=== PATIENT | female | born 1990 | race Caucasian/White ===

== ENCOUNTER 2023-10-26 19:55 | Observation (INO) | payer BC, SELFPAY ==
[2023-10-26] VITALS (10 sets, daily range): BP systolic 125–156; BP diastolic 57–97; PULSE 108–132; BMI 39.6; BMI 37.5
[2023-10-26 15:20] LABS: Urine Albumin Negative (Neg - Trace); Urine Bilirubin Negative (Negative); Urine Character Clear (Clear); Urine Color Yellow; Urine Glucose Negative (Negative); Urine Ketone Negative (Negative); Urine Leukocyte Negative (Negative); Urine Nitrite Negative (Negative); Urine Occult Blood Negative (Negative); Urine Specific Gravity 1.015 (<1.030); Urine Urobilinogen Negative (Neg - 1+)
[2023-10-26 15:22] LABS: % Basophils 0.5 % (0-2); % Eosinophils 1.8 % (0-6); % Immature Granulocytes 2.6 % (0-0.5); % Lymphocytes 13.9 % (20.5-51.1); % Neutrophils 74.2 % (42.2-75.2); Absolute Basophils 0.1 10^3/uL (0-0.2); Absolute Eosinophils 0.3 10^3/uL (0-0.7); Absolute Immature Granulocytes 0.4 10^3/uL (0-0.05); Absolute Neutrophils 10.6 10^3/uL (1.4-6.5); Hematocrit 33.9 % (37.0-47.0); Hemoglobin 11.5 g/dL (12.0-16.0); Mean Corp Hgb Conc. 33.9 g/dL (33.0-37.0); Mean Corpuscular Hgb 29.6 pg (27.0-31.0); Mean Corpuscular Volume 87.1 fL (81.0-99.0); Mean Platelet Volume 10.8 fL (7.4-10.4); Nucleated Red Blood Cells % 0 %; Platelet Count 204 10^3/uL (130-400); Red Blood Cell Count 3.89 10^6/uL (4.20-5.40); Red Cell Dist. Width 14.2 % (11.5-14.5); White Blood Cell Count 14.3 10^3/uL (4.8-10.8)
--- NOTE | 2023-10-26 15:22 | ED.GENMED ---
History of Present Illness
General
Chief Complaint: Breathing Problem
Source: patient
Exam Limitations: none
Time Seen by Provider: 10/26/23 14:00
Travel History
Have you had any contact with someone who has COVID-19?: No
Do you have any symptoms of coronavirus? Fever > 100 degrees, chills, cough, shortness of breath, sore throat, loss of taste or smell, muscle aches, or headache?: No
History of Present Illness
History of Present Illness:
This is a 33-year-old female who is 34 weeks and presents for increasing shortness of breath mostly with exertion. Patient states with exertion her heart rate will go up to close to 150. She states even with minimal getting up bed or
chair her heart rate goes up when she feels short of breath. She has had some compensation. She is lower extremity swelling. She also has had pelvic and vaginal pressure and swelling as well she also had bruising in her pelvic area. Patient has
been in contact with her OB. Patient was not sure if this was pathologic or expected at 34 weeks. She has had normal movement. She did start with Franky Rodriguez contractions this week. Denies chest pain. No pleuritic pain. No calf. No
hemoptysis.
Past History
Past History
ED Past Medical History: Other (Kidney stones)
ED Past Surgical History: Other
Social History
Tobacco: Non-smoker
Employment: Employed
Phy Exam
Physical Exam
Physical Exam:
CONSTITUTIONAL Patient alert and oriented to person, place and time. Well-appearing. Vital signs reviewed.
HEAD atraumatic, normocephalic.
EYES eyelids normal to inspection, Pupils equally round and reactive to light, Extraocular muscles intact, Conjunctiva normal, Sclera normal.
NECK normal range of motion, Trachea midline, no jugular venous distention.
RESPIRATORY CHEST No respiratory distress noted, Chest expansion equal, Bilateral breath sounds clear.
CARDIOVASCULAR regular rate and rhythm, Heart sounds normal.
ABDOMEN abdomen nontender, Bowel sounds normal. No distention. Gravid uterus
BACK normal inspection, no obvious deformities
UPPER EXTREMITY range of motion normal, Motor strength normal, no cyanosis, no edema.
LOWER EXTREMITY range of motion normal, Motor strength normal, no cyanosis, bilateral edema.
NEURO Speech normal, No focal motor deficits, Rod coma scale 15, Memory normal, Cranial Nerves intact to screening exam.
SKIN skin warm, dry, and normal in color.
PSYCHIATRIC patient oriented to person place and time, Normal affect.
Course
Orders/Labs/Results
Orders:
Orders
10/26/23
ECG [Electrocardiogram (*1)] Urgent
Reason for Study: Shortness of Breath
10/26/23 14:13
US Periph Venous LOWER Ext Crescencio Urgent
Comment:
Reason For Exam: SOB, , edema
10/26/23 14:14
Electrocardiogram (*1) Urgent
Reason for Study: Shortness of Breath
EKG- Treatment ONCE
10/26/23 14:15
Heart Tones ONCE
Orthostatic VS- Treatment ONCE
10/26/23 15:05
Complete Blood Count/With Diff Urgent
Comprehensive Metabolic Panel Urgent
Urinalysis Reflex To Culture Urgent
Date Specimen was Collected: 10/26/23
Time Specimen was Collected: 14:59
10/26/23 17:40
CT Chest Pe Study Urgent
Comment:
Reason For Exam: sob, tachycardia, 3rd trimester
10/26/23 18:46
EKG- Treatment ONCE
Abnormal Lab Results
10/26/23
15:05
WBC 14.3 H 10^3/uL
(4.8-10.8)
RBC 3.89 L 10^6/uL
(4.20-5.40)
Hgb 11.5 L g/dL
(12.0-16.0)
Hct 33.9 L %
(37.0-47.0)
MPV 10.8 H fL
(7.4-10.4)
Abs Immat Gran (auto) 0.4 H 10^3/uL
(0-0.05)
Absolute Neuts (auto) 10.6 H 10^3/uL
(1.4-6.5)
Absolute Monos (auto) 1.0 H 10^3/uL
(0.1-0.6)
Immature Gran % 2.6 H %
(0-0.5)
Lymphocytes % 13.9 L %
(20.5-51.1)
Sodium 132 L mmol/L
(135-145)
Creatinine 0.5 L mg/dL
(0.6-1.0)
Alkaline Phosphatase 137 H U/L
(38-126)
10/26/23 15:05
10/26/23 15:05
Vital Signs
Initial and Last Documented VS:
Initial Vital Signs
Temp Pulse Resp BP Pulse Ox
98.1 F 116 20 132/97 98
10/26/23 14:04 10/26/23 14:04 10/26/23 14:04 10/26/23 14:04 10/26/23 14:04
Last Documented Vital Signs
Temp Pulse Resp BP Pulse Ox
98.1 F 106 19 129/74 100
10/26/23 14:04 10/26/23 18:15 10/26/23 18:15 10/26/23 16:13 10/26/23 16:15
MDM/Problems Addressed
MDM/Problems Addressed:
Dyspnea, tachycardia
*Radiology
Radiology exam reviewed: preliminary read by ED provider (No obvious central PE)
*Pulse Oximetry
Patient hypoxic: no
*EKG
Interpreted by ED Provider?: Yes
Interpretation: abnormal
Rate: tachycardiac
Rhythm: sinus
[place]: normal axis
QRS Pattern: normal QRS
Ischemia: no ischemia
*Grappler Interpretation
Rate: tachycardiac
Interpretation: abnormal
Rhythm: sinus
*Critical Care Note
Total Time (30-74mins, 75-104mins- exclusive of procedures): Not Applicable
Data Reviewed
Source: patient
Patient Management
Discussion with other providers: Slip Injector And Applicator (Discussed with Dr. Galeas)
Escalation/DeEscalation of care consider admission/obs:
Appears well. Heart rate 98 on reexam. She does get tachycardic with minimal movement but question whether this is related to third trimester . No PE. No pericardial effusion. No cardiomegaly. No uncontrolled hypertension. I do think
she is safe for discharge. Will write her out of work tomorrow and has OB follow-up on Thursday
ED Attending Note
-
Portions of this chart may have been created with voice recognition software.� Occasional wrong word or��sound alike� substitutions may have occurred due to the inherent limitations of voice recognition software.
Discharge Plan
Departure
Patient Disposition: Home (Routine Discharge)
Date of Disposition: 10/26/23
Time of Disposition: 19:36
Patient with high blood pressure during this ER visit?: No
Discharge Problem:
Dyspnea
Instructions: Shortness of breath (dyspnea)
Prescriptions:
No Action
doxylamine-pyridoxine (vit B6) [Diclegis] 10-10 mg tablet,delayed release (DR/EC)
2 tab PO HS Qty: 30 0RF
Referrals:
UNKNOWN - PT DOES,NOT KNOW [Unknown Provider] -
Activity Restrictions/Additional Instructions:
Please see your OB on Thursday as planned. Please rest and elevate your feet when you can. Return immediately for vaginal bleeding, chest pain, shortness of breath, fevers or any other concerns.
Interventions
Interventions:
*Risk Screen - Suicide Last Done: 10/26/23 14:20
*General Assessment Last Done: 10/26/23 14:45
*Neglect/Abuse Screening Last Done: 10/26/23 14:20
ED- Fall Risk Assessment Last Done: 10/26/23 14:45
*ED COVID-19 Vaccine History Last Done: 10/26/23 14:45
ED- Cardiac Assessment Last Done: 10/26/23 14:45
ED- Pulmonary Assessment Last Done: 10/26/23 14:45
[2023-10-26 15:33] LABS: ALT (SGPT) 14 U/L (0-35); AST (SGOT) 20 U/L (14-36); Albumin 3.5 g/dl (3.5-5.0); Alkaline Phosphatase 137 U/L (38-126); Blood Urea Nitrogen 7 mg/dl (7-17); Calcium 9.3 mg/dl (8.4-10.2); Carbon Dioxide 22 mmol/L (22-30); Chloride 107 mmol/L (98-107); Estimated Creatinine Clearance > 125 ml/min; Glucose 82 mg/dl (70-99); Potassium 3.8 mmol/L (3.5-5.1); Sodium 132 mmol/L (135-145); Total Bilirubin 0.5 mg/dl (0.2-1.3); Total Protein 6.6 g/dl (6.3-8.2); eGFR > 60.00
== END 2023-10-26 21:20 | disposition home or self-care (01) ==
LOC: LDRP 19:55
PROVIDERS: ADMITTING PHYSICIAN Obstetrics & Gynecology; EMERGENCY PHYSICIAN Emergency Medicine; FAMILY PHYSICIAN Family Medicine
DX: R06.02 Shortness of breath (principal); R00.0 Tachycardia, unspecified; O99.891 Other specified diseases and conditions complicating pregnancy; Z3A.33 33 weeks gestation of pregnancy; M79.89 Other specified soft tissue disorders; Z87.442 Personal history of urinary calculi; R06.00 Dyspnea, unspecified
CPT/HCPCS: 71275; 80053; 81003; 85025; 93005; 93970; 99285; G0378; Q9967

== ENCOUNTER → 2023-10-28 10:44 | Outpatient (REF) | payer BC, SELFPAY ==
[2023-10-28 12:30] LABS: Free T4 0.58 ng/dl (0.78-2.19)
[2023-10-28 12:44] LABS: TSH 1.59 uIU/ml (0.47-4.68)
== END ==
LOC: REG 10:44
PROVIDERS: ATTENDING PHYSICIAN Obstetrics & Gynecology; FAMILY PHYSICIAN Family Medicine
DX: Z34.90 Encounter for supervision of normal pregnancy, unspecified, unspecified trimester (principal); R00.2 Palpitations
CPT/HCPCS: 36415; 84439; 84443

== ENCOUNTER → 2023-10-29 09:33 | Outpatient (REF) | payer BC, SELFPAY | LOC: PNTC 09:33 | PROVIDERS: ATTENDING PHYSICIAN Obstetrics & Gynecology | DX: O99.210 Obesity complicating pregnancy, unspecified trimester (principal) | CPT/HCPCS: 59025; 76815 ==

== ENCOUNTER 2023-11-04 17:58 | Observation (INO) | payer BC, SELFPAY ==
[2023-11-04 18:02] VITALS: BP 100/60; BMI 39.2
[2023-11-04 18:23] LABS: Hematocrit 32.9 % (37.0-47.0); Hemoglobin 11.4 g/dL (12.0-16.0); Mean Corp Hgb Conc. 34.7 g/dL (33.0-37.0); Mean Corpuscular Hgb 29.5 pg (27.0-31.0); Mean Platelet Volume 10.7 fL (7.4-10.4); Platelet Count 204 10^3/uL (130-400); Red Blood Cell Count 3.87 10^6/uL (4.20-5.40); Red Cell Dist. Width 14.5 % (11.5-14.5); Urine Albumin Negative (Neg - Trace); Urine Bilirubin Negative (Negative); Urine Character Clear (Clear); Urine Color Yellow; Urine Glucose Negative (Negative); Urine Ketone Negative (Negative); Urine Leukocyte Negative (Negative); Urine Nitrite Negative (Negative); Urine Occult Blood Negative (Negative); Urine Urobilinogen Negative (Neg - 1+); White Blood Cell Count 14.4 10^3/uL (4.8-10.8)
[2023-11-04] MEDS: TYLENOL 1000 MG PO (18:35)
[2023-11-04 18:37] LABS: ALT (SGPT) 15 U/L (0-35); AST (SGOT) 19 U/L (14-36); Albumin 3.5 g/dl (3.5-5.0); Alkaline Phosphatase 137 U/L (38-126); Blood Urea Nitrogen 8 mg/dl (7-17); Calcium 9.4 mg/dl (8.4-10.2); Carbon Dioxide 18 mmol/L (22-30); Chloride 110 mmol/L (98-107); Estimated Creatinine Clearance > 125 ml/min; Glucose 106 mg/dl (70-99); Potassium 3.9 mmol/L (3.5-5.1); Sodium 133 mmol/L (135-145); Total Bilirubin 0.5 mg/dl (0.2-1.3); Total Protein 6.7 g/dl (6.3-8.2); eGFR > 60.00
[2023-11-04 18:40] LABS: Urine Protein 16 mg/dl
[2023-11-04 19:07] LABS: Protein/creatinine Ratio 0.4
== END 2023-11-04 19:44 | disposition home or self-care (01) ==
LOC: LDRP 17:58
PROVIDERS: ADMITTING PHYSICIAN Obstetrics & Gynecology; FAMILY PHYSICIAN Obstetrics & Gynecology
DX: O13.3 Gestational [pregnancy-induced] hypertension without significant proteinuria, third trimester (principal); R51.9 Headache, unspecified; R60.0 Localized edema; R10.11 Right upper quadrant pain; O99.891 Other specified diseases and conditions complicating pregnancy; Z3A.35 35 weeks gestation of pregnancy
CPT/HCPCS: 36415; 80053; 81003; 82570; 83880; 84156; 84550; 85027; G0378

== ENCOUNTER → 2023-11-05 09:29 | Outpatient (REF) | payer BC, SELFPAY | LOC: PNTC 09:29 | PROVIDERS: ATTENDING PHYSICIAN Obstetrics & Gynecology | DX: O99.210 Obesity complicating pregnancy, unspecified trimester (principal) | CPT/HCPCS: 59025; 76815 ==

== ENCOUNTER 2023-11-06 13:51 | Observation (INO) | payer BC, SELFPAY ==
[2023-11-06 14:02] VITALS: BP 146/89; BMI 39.9
== END 2023-11-06 14:51 | disposition home or self-care (01) ==
LOC: LDRP 13:51
PROVIDERS: ADMITTING PHYSICIAN Obstetrics & Gynecology; FAMILY PHYSICIAN Family Medicine
DX: O47.03 False labor before 37 completed weeks of gestation, third trimester (principal); Z3A.35 35 weeks gestation of pregnancy; M54.50 Low back pain, unspecified; R10.9 Unspecified abdominal pain; R06.02 Shortness of breath
CPT/HCPCS: 87070; 93306; G0378

== ENCOUNTER → 2023-11-09 14:38 | Outpatient (REF) | payer BC, SELFPAY ==
[2023-11-09 16:02] LABS: Urine Protein 14 mg/dl (0-12)
[2023-11-09 16:17] LABS: 24 Hour Urine Creatinine 1.771 gm/day (0.8-1.8); 24 Hour Urine Total Volume 2900 ml
== END ==
LOC: REG 14:38
PROVIDERS: ATTENDING PHYSICIAN Obstetrics & Gynecology; FAMILY PHYSICIAN Family Medicine
DX: R82.90 Unspecified abnormal findings in urine (principal)
CPT/HCPCS: 81050; 82570; 84156

== ENCOUNTER 2023-11-11 10:45 | Observation (INO) | payer BC, SELFPAY ==
[2023-11-11 11:04] VITALS: BP 150/94; BMI 40.8
[2023-11-11 12:07] LABS: Hematocrit 33.3 % (37.0-47.0); Hemoglobin 11.3 g/dL (12.0-16.0); Mean Corp Hgb Conc. 33.9 g/dL (33.0-37.0); Mean Corpuscular Hgb 29.6 pg (27.0-31.0); Mean Corpuscular Volume 87.2 fL (81.0-99.0); Mean Platelet Volume 11.1 fL (7.4-10.4); Platelet Count 197 10^3/uL (130-400); Red Blood Cell Count 3.82 10^6/uL (4.20-5.40); Red Cell Dist. Width 14.6 % (11.5-14.5); White Blood Cell Count 13.8 10^3/uL (4.8-10.8)
[2023-11-11] MEDS: COMPAZINE 10 MG IM (12:08)
[2023-11-11] MEDS: BENADRYL 50 MG PO (12:08)
[2023-11-11 12:23] LABS: ALT (SGPT) 14 U/L (0-35); AST (SGOT) 20 U/L (14-36); Albumin 3.3 g/dl (3.5-5.0); Alkaline Phosphatase 137 U/L (38-126); Blood Urea Nitrogen 9 mg/dl (7-17); Calcium 9.5 mg/dl (8.4-10.2); Carbon Dioxide 18 mmol/L (22-30); Chloride 108 mmol/L (98-107); Estimated Creatinine Clearance > 125 ml/min; Glucose 102 mg/dl (70-99); Potassium 4.2 mmol/L (3.5-5.1); Sodium 132 mmol/L (135-145); Total Bilirubin 0.5 mg/dl (0.2-1.3); Total Protein 6.4 g/dl (6.3-8.2); eGFR > 60.00
[2023-11-11] MEDS: CELESTONE SOLUSPAN 2 MG IM (12:23)
== END 2023-11-11 15:15 | disposition home or self-care (01) ==
LOC: LDRP 10:45
PROVIDERS: ADMITTING PHYSICIAN Obstetrics & Gynecology
DX: O14.03 Mild to moderate pre-eclampsia, third trimester (principal); Z3A.36 36 weeks gestation of pregnancy; O99.343 Other mental disorders complicating pregnancy, third trimester; E87.1 Hypo-osmolality and hyponatremia; F41.9 Anxiety disorder, unspecified; F32.A Depression, unspecified; Z87.442 Personal history of urinary calculi; R51.9 Headache, unspecified; R60.0 Localized edema
CPT/HCPCS: 80053; 85027; G0378

== ENCOUNTER 2023-11-12 11:41 | Observation (INO) | payer BC, SELFPAY ==
[2023-11-12] MEDS: CELESTONE SOLUSPAN 2 MG IM (11:52)
== END 2023-11-12 14:30 | disposition home or self-care (01) ==
LOC: PNTC-IN 11:41
PROVIDERS: ADMITTING PHYSICIAN Obstetrics & Gynecology
DX: O14.03 Mild to moderate pre-eclampsia, third trimester (principal); Z3A.36 36 weeks gestation of pregnancy
CPT/HCPCS: 59025; 76816; G0378

== ENCOUNTER 2023-11-16 19:21 | Inpatient (IN) | payer BC, SELFPAY ==
[2023-11-16 20:56] VITALS: BP 142/82; BMI 40.8
[2023-11-16 21:04] LABS: % Basophils 0.3 % (0-2); % Eosinophils 1.2 % (0-6); % Immature Granulocytes 1.5 % (0-0.5); % Lymphocytes 15.4 % (20.5-51.1); % Monocytes 6.5 % (1.7-9.3); % Neutrophils 75.1 % (42.2-75.2); Absolute Basophils 0.1 10^3/uL (0-0.2); Absolute Eosinophils 0.2 10^3/uL (0-0.7); Absolute Immature Granulocytes 0.2 10^3/uL (0-0.05); Absolute Lymphocytes 2.4 10^3/uL (1.2-3.4); Absolute Neutrophils 11.7 10^3/uL (1.4-6.5); Hematocrit 31.8 % (37.0-47.0); Mean Corp Hgb Conc. 34.6 g/dL (33.0-37.0); Mean Corpuscular Hgb 29.1 pg (27.0-31.0); Mean Corpuscular Volume 84.1 fL (81.0-99.0); Mean Platelet Volume 10.9 fL (7.4-10.4); Nucleated Red Blood Cells % 0 %; Platelet Count 213 10^3/uL (130-400); Red Blood Cell Count 3.78 10^6/uL (4.20-5.40); Red Cell Dist. Width 15.2 % (11.5-14.5); White Blood Cell Count 15.6 10^3/uL (4.8-10.8)
[2023-11-16] MEDS: CYTOTEC 50 MICROGRAM VAG (21:13)
[2023-11-17] MEDS: CYTOTEC 25 MICROGRAM PO ×2 (01:10→05:04)
[2023-11-17] MEDS: MORPHINE SULFATE 2 MG IV ×4 (02:14→15:12)
[2023-11-17] MEDS: ZOFRAN 4 MG IV (07:34)
[2023-11-17] MEDS: CYTOTEC PO (10:27)
[2023-11-17 12:24] LABS: Potassium 4.2 mmol/L (3.5-5.1)
[2023-11-17 12:25] LABS: ALT (SGPT) 15 U/L (0-35); AST (SGOT) 20 U/L (14-36); Albumin 3.5 g/dl (3.5-5.0); Alkaline Phosphatase 155 U/L (38-126); Blood Urea Nitrogen 11 mg/dl (7-17); Calcium 9.1 mg/dl (8.4-10.2); Carbon Dioxide 22 mmol/L (22-30); Chloride 105 mmol/L (98-107); Estimated Creatinine Clearance > 125 ml/min; Glucose 76 mg/dl (70-99); Sodium 131 mmol/L (135-145); Total Bilirubin 0.7 mg/dl (0.2-1.3); Total Protein 6.7 g/dl (6.3-8.2); eGFR > 60.00
[2023-11-17] MEDS: PITOCIN 30 UNITS/NSS 500 ML IV (12:54)
[2023-11-17] MEDS: PHENERGAN 51 MG IV (15:27)
[2023-11-17] MEDS: SUBLIMAZE 100 MCG EPIDURAL (17:00)
[2023-11-17] MEDS: FENTANYL/BUPIVACAINE 100 EPIDURAL (17:00)
[2023-11-18] MEDS: FENTANYL/BUPIVACAINE 100 EPIDURAL ×2 (00:29→07:50)
[2023-11-18] MEDS: LR 1000 IV ×2 (00:30→07:52)
[2023-11-18] MEDS: TYLENOL 650 MG PO ×2 (00:47→18:07)
[2023-11-18] MEDS: BENADRYL 50 MG IV (03:15)
[2023-11-18] MEDS: COMPAZINE 10 MG IV (03:17)
[2023-11-18] MEDS: MOTRIN 600 MG PO ×2 (14:31→20:25)
[2023-11-18] MEDS: PRENATAL PLUS 1 TABLET PO (22:06)
[2023-11-19] MEDS: MOTRIN 600 MG PO ×3 (03:36→17:41)
[2023-11-19] MEDS: TYLENOL 650 MG PO ×4 (03:37→22:32)
[2023-11-19 06:04] LABS: Hematocrit 28.6 % (37.0-47.0); Hemoglobin 9.5 g/dL (12.0-16.0)
[2023-11-19] MEDS: SENOKOT-S 1 TABLET PO (08:41)
[2023-11-19] MEDS: FEOSOL 325 MG PO (20:35)
[2023-11-19] MEDS: PRENATAL PLUS 1 TABLET PO (22:32)
[2023-11-20] MEDS: MOTRIN 600 MG PO (02:07)
[2023-11-20] MEDS: FEOSOL 325 MG PO (08:04)
[2023-11-20] MEDS: PROCARDIA XL (EXTENDED RELEASE) 30 MG PO (08:05)
[2023-11-20] MEDS: SENOKOT-S 1 TABLET PO (08:05)
[2023-11-20] MEDS: TYLENOL 650 MG PO (08:32)
--- NOTE | 2023-11-20 13:01 | CM ---
CM with first time parents at bedside
Parents confirm listed address. No one else lives in home
Baby's name is Pluckemin
Mom reports she plans to bottle feed her . Confirms she has all supplies for baby including car seat
Mom plans to take to [facility] for pediatric care and will schedule appt
[2023-11-20 16:30] LABS: Syphilis/T. pallidum Ab Reflex Negative (Negative)
== END 2023-11-20 10:49 | disposition home or self-care (01) | DRG 807 ==
LOC: LDRP 19:21
PROVIDERS: Obstetrics & Gynecology; ADMITTING PHYSICIAN Obstetrics & Gynecology; FAMILY PHYSICIAN Obstetrics & Gynecology
PROC: 3E0P7VZ Introduction of Hormone into Female Reproductive, Via Natural or Artificial Opening (ICD-10-PCS; 2023-11-16)
PROC: 0U7C7ZZ Dilation of Cervix, Via Natural or Artificial Opening (ICD-10-PCS; 2023-11-17)
PROC: 3E033VJ Introduction of Other Hormone into Peripheral Vein, Percutaneous Approach (ICD-10-PCS; 2023-11-17)
PROC: 10H07YZ Insertion of Other Device into Products of Conception, Via Natural or Artificial Opening (ICD-10-PCS; 2023-11-18)
PROC: 10E0XZZ Delivery of Products of Conception, External Approach (ICD-10-PCS; 2023-11-18)
PROC: 0KQM0ZZ Repair Perineum Muscle, Open Approach (ICD-10-PCS; 2023-11-18)
DX: O14.04 Mild to moderate pre-eclampsia, complicating childbirth (principal); Z37.0 Single live birth; O99.214 Obesity complicating childbirth; O76 Abnormality in fetal heart rate and rhythm complicating labor and delivery; O70.1 Second degree perineal laceration during delivery; Z3A.36 36 weeks gestation of pregnancy; O99.344 Other mental disorders complicating childbirth; F32.A Depression, unspecified; F41.9 Anxiety disorder, unspecified
CPT/HCPCS: 88307; 80053; 85014; 85018; 85025; 86780; 86850; 86900; 86901

== ENCOUNTER → 2024-01-01 12:32 | Outpatient (REF) | payer BC, SELFPAY ==
[2024-01-02 17:24] LABS: Bacterial Vaginosis by TMA Negative; Candida glabrata by TMA Negative; Candida species by TMA Negative; Trichomonas vaginalis by TMA Negative
== END ==
LOC: CPAP 12:32
PROVIDERS: ATTENDING PHYSICIAN Obstetrics & Gynecology
DX: N76.0 Acute vaginitis (principal)
CPT/HCPCS: 81513; 87481; 87661

== ENCOUNTER → 2024-05-31 09:13 | Outpatient (REF) | payer BC, SELFPAY ==
[2024-05-31 10:19] LABS: Hematocrit 37.6 % (37.0-47.0); Hemoglobin 12.5 g/dL (12.0-16.0); Mean Corp Hgb Conc. 33.2 g/dL (33.0-37.0); Mean Corpuscular Hgb 27.9 pg (27.0-31.0); Mean Corpuscular Volume 83.9 fL (81.0-99.0); Mean Platelet Volume 9.3 fL (7.4-10.4); Platelet Count 309 10^3/uL (130-400); Red Blood Cell Count 4.48 10^6/uL (4.20-5.40); Red Cell Dist. Width 14.6 % (11.5-14.5); White Blood Cell Count 8.2 10^3/uL (4.8-10.8)
[2024-05-31 10:58] LABS: ALT (SGPT) 27 U/L (0-35); AST (SGOT) 23 U/L (14-36); Albumin 4.4 g/dl (3.5-5.0); Alkaline Phosphatase 74 U/L (38-126); Blood Urea Nitrogen 15 mg/dl (7-17); Calcium 9.6 mg/dl (8.4-10.2); Carbon Dioxide 25 mmol/L (22-30); Chloride 104 mmol/L (98-107); Glucose 96 mg/dl (70-99); HDL Cholesterol 51 mg/dl; LDL Cholesterol, Calculated 82 mg/dl; Potassium 4.8 mmol/L (3.5-5.1); Sodium 142 mmol/L (135-145); Total Bilirubin 0.8 mg/dl (0.2-1.3); Total Cholesterol 144 mg/dl (50-199); Total Protein 7.5 g/dl (6.3-8.2); Triglyceride 57 mg/dl (10-149); Very Low Density Lipoprotein 11 mg/dl (0-30); eGFR > 60.00
[2024-05-31 11:11] LABS: FSH 5.1 mIU/ml; Luteinizing Hormone 1.75 mIU/ml; Prolactin 22.9 ng/ml (3.0-18.6)
[2024-05-31 11:25] LABS: TSH Reflex To Free T4 1.57 uIU/ml (0.47-4.68)
[2024-05-31 11:27] LABS: Estradiol 45.4 pg/ml; Testosterone, Total 23.2 ng/dl
[2024-05-31 12:58] LABS: Glycohemoglobin (HgbA1c) 5.6 % (4.0-5.6)
[2024-06-02 21:46] LABS: DHEA Sulfate 195 ug/dL (99-340)
== END ==
LOC: REG 09:13
PROVIDERS: ATTENDING PHYSICIAN Obstetrics & Gynecology
DX: L68.0 Hirsutism (principal); N91.2 Amenorrhea, unspecified
CPT/HCPCS: 36415; 80053; 80061; 82627; 82670; 83001; 83002; 83036; 84146; 84270; 84402; 84403; 84443; 85027

== ENCOUNTER 2024-07-21 14:17 | Emergency (ER) | payer BC, SELFPAY ==
[2024-07-21] VITALS (14 sets, daily range): BP systolic 104–148; BP diastolic 56–104
[2024-07-21] MEDS: NSS 1000 IV (14:23)
[2024-07-21] MEDS: ZOFRAN 4 MG IV ×2 (14:23→14:56)
--- NOTE | 2024-07-21 14:33 | ED.GENMED ---
History of Present Illness
<Alejandro Lee PA-C - Last Filed: 07/22/24 15:32>
General
Chief Complaint: Abdominal Symptoms
Source: patient
Exam Limitations: none
Time Seen by Provider: 07/21/24 14:17
History of Present Illness
History of Present Illness:
34-year-old otherwise healthy female with onset of nausea epigastric discomfort and bilateral arm discomfort. The arm discomfort started last evening. There is associated nausea with episodes of vomiting here. She works as a nurse here. She
denies fevers. She just notes diffuse myalgias. No shortness of breath.
Past History
<ZACKARY Mendoza Last Filed: 07/22/24 15:32>
Past History
ED Past Medical History: Other (Kidney stones)
ED Past Surgical History: Other
Social History
Tobacco: Non-smoker
Employment: Employed
Phy Exam
<ZACKARY Mendoza Last Filed: 07/22/24 15:32>
Physical Exam
Physical Exam:
General: Uncomfortable appearing female no acute respiratory distress
HEENT: Normocephalic atraumatic
Heart: Regular rate and rhythm
Lungs: Clear
Abdomen is soft tender to the epigastric region no significant Manley sign
Extremities: No cyanosis
Course
<ZACKARY Mendoza Last Filed: 07/22/24 15:32>
Orders/Labs/Results
Orders:
Orders
07/21/24 14:18
Ondansetron Injectable [Zofran] 4 mg IV NOW STA
07/21/24 14:19
Electrocardiogram (*1) Urgent
Reason for Study: Chest Pain
EKG- Treatment ONCE
0.9% Sodium Chloride 1000 ml [Nss] 1,000 ml IV BOLUS
Ondansetron Injectable [Zofran] 4 mg .ROUTE .STK-MED ONE
07/21/24 14:20
Test Result ONCE
07/21/24 14:22
CPK [Creatine Phosphokinase] Urgent
Complete Blood Count/With Diff Urgent
Comprehensive Metabolic Panel Urgent
HCG, Serum Qualitative Screen Urgent
Lipase Urgent
Comment: LIPASE ADDED ON BY FLOOR 2:30PM 07-21-23
Troponin I Urgent
07/21/24 14:30
Add On- LAB Urgent
Tests Added?: lipase
07/21/24 14:32
US Abdomen Complete/Upper Urgent
Comment:
Reason For Exam: epigastric pain
07/21/24 14:44
HYDROmorphone [Dilaudid] 0.5 mg .ROUTE .STK-MED ONE
HYDROmorphone [Dilaudid] 0.5 mg IV NOW STA
07/21/24 14:53
CT Chest/abd/pelvis Angio W/wo Urgent
Comment:
Reason For Exam: Bilateral arm pain with epigastric pain
07/21/24 14:54
Ondansetron Injectable [Zofran] 4 mg .ROUTE .STK-MED ONE
07/21/24 14:56
Ondansetron Injectable [Zofran] 4 mg IV NOW STA
07/21/24 15:27
COVID-19 Antigen Urgent
Source: Nasal Swab
Influenza A+B Rapid Molecular Urgent
KOBY Source: Nasal Swab
Specimen Description:
07/21/24 16:08
Ketorolac [Toradol] 15 mg IV NOW STA
07/21/24 16:29
Famotidine [Pepcid] 20 mg IV NOW STA
07/21/24 17:35
HYDROmorphone [Dilaudid] 0.5 mg IV NOW STA
07/21/24 17:54
Troponin I Urgent
Abnormal Lab Results
07/21/24
14:22
WBC 11.6 H 10^3/uL
(4.8-10.8)
Hct 35.9 L %
(37.0-47.0)
RDW 14.7 H %
(11.5-14.5)
Abs Immat Gran (auto) 0.1 H 10^3/uL
(0-0.05)
Absolute Neuts (auto) 7.7 H 10^3/uL
(1.4-6.5)
Absolute Monos (auto) 0.9 H 10^3/uL
(0.1-0.6)
07/21/24 14:22
07/21/24 14:22
Vital Signs
Initial and Last Documented VS:
Initial Vital Signs
Temp
98.6 F
07/21/24 14:20
Last Documented Vital Signs
Temp Pulse Resp BP Pulse Ox
98.6 F 70 14 118/60 96
07/21/24 14:20 07/21/24 18:30 07/21/24 18:30 07/21/24 18:30 07/21/24 17:30
<Itz Rodrigues MD - Last Filed: 07/21/24 15:40>
Orders/Labs/Results
Orders:
Orders
07/21/24 14:18
Ondansetron Injectable [Zofran] 4 mg IV NOW STA
07/21/24 14:19
Electrocardiogram (*1) Urgent
Reason for Study: Chest Pain
EKG- Treatment ONCE
0.9% Sodium Chloride 1000 ml [Nss] 1,000 ml IV BOLUS
Ondansetron Injectable [Zofran] 4 mg .ROUTE .STK-MED ONE
07/21/24 14:20
Test Result ONCE
07/21/24 14:22
CPK [Creatine Phosphokinase] Urgent
Complete Blood Count/With Diff Urgent
Comprehensive Metabolic Panel Urgent
HCG, Serum Qualitative Screen Urgent
Lipase Urgent
Comment: LIPASE ADDED ON BY FLOOR 2:30PM 07-21-23
Troponin I Urgent
07/21/24 14:30
Add On- LAB Urgent
Tests Added?: lipase
07/21/24 14:32
US Abdomen Complete/Upper Urgent
Comment:
Reason For Exam: epigastric pain
07/21/24 14:44
HYDROmorphone [Dilaudid] 0.5 mg .ROUTE .STK-MED ONE
HYDROmorphone [Dilaudid] 0.5 mg IV NOW STA
07/21/24 14:53
CT Chest/abd/pelvis Angio W/wo Urgent
Comment:
Reason For Exam: Bilateral arm pain with epigastric pain
07/21/24 14:54
Ondansetron Injectable [Zofran] 4 mg .ROUTE .STK-MED ONE
07/21/24 14:56
Ondansetron Injectable [Zofran] 4 mg IV NOW STA
07/21/24 15:27
COVID-19 Antigen Urgent
Source: Nasal Swab
Influenza A+B Rapid Molecular Urgent
KOBY Source: Nasal Swab
Specimen Description:
07/21/24 16:08
Ketorolac [Toradol] 15 mg IV NOW STA
07/21/24 16:29
Famotidine [Pepcid] 20 mg IV NOW STA
07/21/24 17:35
HYDROmorphone [Dilaudid] 0.5 mg IV NOW STA
07/21/24 17:54
Troponin I Urgent
Abnormal Lab Results
07/21/24
14:22
WBC 11.6 H 10^3/uL
(4.8-10.8)
Hct 35.9 L %
(37.0-47.0)
RDW 14.7 H %
(11.5-14.5)
Abs Immat Gran (auto) 0.1 H 10^3/uL
(0-0.05)
Absolute Neuts (auto) 7.7 H 10^3/uL
(1.4-6.5)
Absolute Monos (auto) 0.9 H 10^3/uL
(0.1-0.6)
07/21/24 14:22
07/21/24 14:22
Vital Signs
Initial and Last Documented VS:
Initial Vital Signs
Temp
98.6 F
07/21/24 14:20
Last Documented Vital Signs
Temp Pulse Resp BP Pulse Ox
98.6 F 70 14 118/60 96
07/21/24 14:20 07/21/24 18:30 07/21/24 18:30 07/21/24 18:30 07/21/24 17:30
<Alejandro Lee PA-C - Last Filed: 07/22/24 15:32>
MDM/Problems Addressed
Differential Diagnosis Includes:
Patient with overall unwell sensation associated with nausea epigastric discomfort and arm discomfort. Will initiate cardiac workup with EKG and troponin. Lipase CPK added as well. Will hydrate with IV fluids and treat nausea with Zofran. Given
the epigastric discomfort order ultrasound of the abdomen.
Consider viral illness versus pancreatitis versus biliary colic versus dissection but less likely and otherwise healthy young person
<Alejandro Lee PA-C - Last Filed: 07/22/24 15:32>
*Critical Care Note
Total Time (30-74mins, 75-104mins- exclusive of procedures): Not Applicable
ED Attending Note
<Alejandro Lee PA-C - Last Filed: 07/22/24 15:32>
-
Portions of this chart may have been created with voice recognition software.� Occasional wrong word or��sound alike� substitutions may have occurred due to the inherent limitations of voice recognition software.
<Itz Rodrigues MD - Last Filed: 07/21/24 15:40>
ED Attending Note
Patient seen and examined by attending physician: Yes
I performed the substantive portion of visit, reviewed & personally made and approve the management plan that is documented in note by myself or ANIA.: Yes
ED Attending Note:
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 Some lightheadedness. Started in the middle night with bilateral arm pain and nausea. No trauma no history of same.
On exam patient appears uncomfortable slightly pale. Stable vital signs. Lungs with very mild end expiratory wheezing. Heart regular rate and rhythm no murmur. Abdomen soft but moderate epigastric tenderness. No rebound or guarding no mass or
hernia. Warm and dry. Perfusing well.
Large differential including gastritis/viral syndrome/gallbladder/cardiac/vascular emergency.
As patient was feeling worse in the ER mildly bradycardic and paler we elected to send her for stat CTA. I was in CAT scan. I did not see any acute finding on CT. Immediately reviewed with radiology who agreed. Upon rechecking the patient she
does appear improved. Gallbladder is still on the list. Workup continues
Discharge Plan
Departure
Patient Disposition: Home (Routine Discharge)
Date of Disposition: 07/21/24
Time of Disposition: 18:58
Patient with high blood pressure during this ER visit?: No
Condition: Fair
Covid-19: Not Applicable
Discharge Problem:
Abdominal pain, Vomiting
Instructions: Nausea and Vomiting, Adult (DC), Abdominal Pain
Prescriptions:
New
ondansetron 4 mg tablet,disintegrating
4 mg PO Q8H PRN (Reason: nausea and vomiting) 4 Days Qty: 12 0RF
No Action
prenat.vits,seth,[id number] Tablet
1 tab PO QHS
acetaminophen 325 mg Tablet
650 mg PO Q4HPRN PRN (Reason: mild pain) Qty: 0 0RF
ibuprofen 600 mg Tablet
600 mg PO Q6HPRN PRN (Reason: moderate pain/cramps) Qty: 0 0RF
nifedipine 30 mg Tablet Extended Release
30 mg PO DAILY Qty: 30 0RF
nifedipine [Procardia XL] 30 mg tablet extended release 24hr
30 mg PO DAILY Qty: 30 0RF
ferrous sulfate [iron] 325 mg (65 mg iron) tablet
325 mg PO DAILY Qty: 30 0RF
Referrals:
NONE,* [Active] -
Stand Alone Forms: Return to Work
Activity Restrictions/Additional Instructions:
Follow up with your family doctor. Return to the emergency department immediately for any changes in/worsening of your symptoms
Interventions
Interventions:
*Risk Screen - Suicide Last Done: 07/21/24 15:08
*General Assessment Last Done: 07/21/24 15:08
*Neglect/Abuse Screening Last Done: 07/21/24 15:08
ED- Fall Risk Assessment Last Done: 07/21/24 15:08
*ED COVID-19 Vaccine History Last Done: 07/21/24 15:08
*Nursing Disposition Last Done: 07/21/24 19:12
[place] Assessment Last Done: 07/21/24 15:08
Discharge Date and Time
Discharge Date/Time: 07/21/24 19:14
Print Language: CITIZEN OF [place]
[2024-07-21 14:38] LABS: % Basophils 0.6 % (0-2); % Eosinophils 2.9 % (0-6); % Immature Granulocytes 0.4 % (0-0.5); % Lymphocytes 21.7 % (20.5-51.1); % Monocytes 7.4 % (1.7-9.3); Absolute Basophils 0.1 10^3/uL (0-0.2); Absolute Eosinophils 0.3 10^3/uL (0-0.7); Absolute Immature Granulocytes 0.1 10^3/uL (0-0.05); Absolute Lymphocytes 2.5 10^3/uL (1.2-3.4); Absolute Monocytes 0.9 10^3/uL (0.1-0.6); Absolute Neutrophils 7.7 10^3/uL (1.4-6.5); Hematocrit 35.9 % (37.0-47.0); Hemoglobin 12.1 g/dL (12.0-16.0); Mean Corp Hgb Conc. 33.7 g/dL (33.0-37.0); Mean Corpuscular Hgb 27.8 pg (27.0-31.0); Mean Corpuscular Volume 82.5 fL (81.0-99.0); Mean Platelet Volume 9.1 fL (7.4-10.4); Nucleated Red Blood Cells % 0 %; Platelet Count 327 10^3/uL (130-400); Red Blood Cell Count 4.35 10^6/uL (4.20-5.40); Red Cell Dist. Width 14.7 % (11.5-14.5); White Blood Cell Count 11.6 10^3/uL (4.8-10.8)
[2024-07-21 14:39] LABS: HCG, Serum Qualitative Screen Negative
[2024-07-21 14:41] LABS: ALT (SGPT) 17 U/L (0-35); AST (SGOT) 17 U/L (14-36); Albumin 4.5 g/dl (3.5-5.0); Alkaline Phosphatase 61 U/L (38-126); Blood Urea Nitrogen 15 mg/dl (7-17); Calcium 9.6 mg/dl (8.4-10.2); Carbon Dioxide 23 mmol/L (22-30); Chloride 103 mmol/L (98-107); Creatine Phosphokinase 78 U/L (30-135); Glucose 91 mg/dl (70-99); Potassium 4.3 mmol/L (3.5-5.1); Sodium 140 mmol/L (135-145); Total Bilirubin 0.4 mg/dl (0.2-1.3); eGFR > 60.00
[2024-07-21] MEDS: DILAUDID 0.5 MG IV ×2 (14:45→17:47)
[2024-07-21 14:50] LABS: Lipase 114 U/L (23-300)
[2024-07-21 14:54] LABS: Troponin I < 0.012 ng/ml
[2024-07-21 15:52] LABS: COVID-19 Antigen Negative (Negative)
[2024-07-21] MEDS: TORADOL 15 MG IV (16:12)
[2024-07-21] MEDS: PEPCID 20 MG IV (16:34)
[2024-07-21 18:32] LABS: Troponin I < 0.012 ng/ml
== END 2024-07-21 19:14 | disposition home or self-care (01) ==
LOC: EMR 14:17
PROVIDERS: Physician Assistant; EMERGENCY PHYSICIAN Emergency Medicine; FAMILY PHYSICIAN Family Medicine
DX: R10.13 Epigastric pain (principal); R11.2 Nausea with vomiting, unspecified; R42 Dizziness and giddiness; M79.602 Pain in left arm; M79.601 Pain in right arm; R06.2 Wheezing; R00.1 Bradycardia, unspecified; Z11.52 Encounter for screening for COVID-19
CPT/HCPCS: 99285; 96361; 96374; 96375 ×3; 96376 ×2; 71275; 74174; 76700; 80053; 82550; 83690; 84484; 84703; 85025; 87502; 87811; 93005; Q9967

== ENCOUNTER 2024-11-29 20:50 | Emergency (ER) | payer BC, SELFPAY ==
--- NOTE | 2024-11-29 20:54 | ED.GENMED ---
History of Present Illness
General
Chief Complaint: Blood and Body Fluid Exposure
Time Seen by Provider: 11/29/24 20:52
History of Present Illness
History of Present Illness:
34-year-old female presents to the emergency department due to a blood and body fluid exposure. Apparently pipe draining water from a shower of the patient above the emergency department ruptured and cause leaking into the emergency department
which resulted in blood and body fluids entering the patient's eyes. The patient was identified to be having a GI bleed. No other sources of exposure
Past History
Past History
ED Past Medical History: Other (Kidney stones)
ED Past Surgical History: Other
Social History
Tobacco: Non-smoker
Employment: Employed
Review of Systems
Review of Systems
Allergies reviewed?: Yes
All Other Systems: ROS reviewed and negative except as documented in HPI and ROS
Phy Exam
Physical Exam
Physical Exam:
GEN: Well appearing, NAD, WDWN
HEENT: Oral mucosa moist, no scleral icterus
Cardiac: Regular rate
Lung: No respiratory distress, no tachypnea
MSK: No gross deformity or injuries
Skin: Good color, no pallor or jaundice, no rashes
Neuro: AO x3, moves all extremities freely
Psych: Calm, cooperative
Course
Orders/Labs/Results
Orders:
Orders
11/29/24 20:53
Pt has had a significant HIV exposure? Routine
HIV Exposure is significant?: No
Gentamicin [Genoptic 0.3% Eye Drops] See Dose Instructions OPHTH NOW STA
11/29/24 21:10
HIV Combo Urgent
Hepatitis B Surface Antibody Urgent
Hepatitis B Surface Antigen Urgent
Hepatitis C Antibody Urgent
MDM/Problems Addressed
MDM/Problems Addressed:
Will provide prophylactic gentamicin due to fecal contamination into the eyes, exposure panel sent, low risk for HIV no indication for HAART
*Critical Care Note
Total Time (30-74mins, 75-104mins- exclusive of procedures): Not Applicable
ED Attending Note
-
Portions of this chart may have been created with voice recognition software.� Occasional wrong word or��sound alike� substitutions may have occurred due to the inherent limitations of voice recognition software.
Discharge Plan
Departure
Patient Disposition: Home (Routine Discharge)
Date of Disposition: 11/29/24
Time of Disposition: 21:00
Patient with high blood pressure during this ER visit?: No
Discharge Problem:
Employee exposure to blood
Prescriptions:
No Action
prenat.vits,seth,[id number] Tablet
1 tab PO QHS
acetaminophen 325 mg Tablet
650 mg PO Q4HPRN PRN (Reason: mild pain) Qty: 0 0RF
ibuprofen 600 mg Tablet
600 mg PO Q6HPRN PRN (Reason: moderate pain/cramps) Qty: 0 0RF
nifedipine 30 mg Tablet Extended Release
30 mg PO DAILY Qty: 30 0RF
nifedipine [Procardia XL] 30 mg tablet extended release 24hr
30 mg PO DAILY Qty: 30 0RF
ferrous sulfate [iron] 325 mg (65 mg iron) tablet
325 mg PO DAILY Qty: 30 0RF
ondansetron 4 mg tablet,disintegrating
4 mg PO Q8H PRN (Reason: nausea and vomiting) 4 Days Qty: 12 0RF
Referrals:
RASHAD MILLER MD [Family Provider] -
Stand Alone Forms: Blood Body/Fluid Exposure
Interventions
Interventions:
*Risk Screen - Suicide Last Done: 11/29/24 21:16
*General Assessment Last Done: 11/29/24 21:16
*Neglect/Abuse Screening Last Done: 11/29/24 21:16
*ED- Fall Risk Assessment Last Done: 11/29/24 21:16
*ED COVID-19 Vaccine History Last Done: 11/29/24 21:16
*Nursing Disposition Last Done: 11/29/24 21:19
ED-EENT Assessment Last Done: 11/29/24 21:19
ED-Skin Assessment Last Done: 11/29/24 21:19
Discharge Date and Time
Discharge Date/Time: 11/29/24 21:19
Print Language: MALIAN
[2024-11-29] MEDS: GENOPTIC 0.3% EYE DROPS 1 DROP OPHTH (21:12)
[2024-11-29 22:20] LABS: Hepatitis B Surface Antigen Negative (Negative)
[2024-11-29 22:26] LABS: HIV Combo Negative (Negative)
[2024-11-29 22:37] LABS: Hepatitis B Surface Antibody Positive; Hepatitis C Antibody Negative (Negative)
== END 2024-11-29 21:19 | disposition home or self-care (01) ==
LOC: EMR 20:50
PROVIDERS: Physician Assistant; EMERGENCY PHYSICIAN Emergency Medicine; FAMILY PHYSICIAN Family Medicine
DX: Z77.21 Contact with and (suspected) exposure to potentially hazardous body fluids (principal)
CPT/HCPCS: 99283; 86706; 86803; 87340; 87389

== ENCOUNTER 2025-01-17 08:57 | Emergency (ER) | payer BC, SELFPAY ==
[2025-01-17 09:00] VITALS: BP 147/86
--- NOTE | 2025-01-17 09:12 | ED.GENMED ---
History of Present Illness
<Bryce Woody PA-C - Last Filed: 01/17/25 12:31>
General
Chief Complaint: Throat Problem
Time Seen by Provider: 01/17/25 09:05
History of Present Illness
History of Present Illness:
34-year-old female presents the emergency department for evaluation of sore throat, fever, and dysphagia beginning 2 days ago. Able to tolerate her secretions but with significant odynophagia. Was seen urgent care yesterday where rapid strep test
was negative. Was not treated with any antibiotics or steroids. No cough or vomiting
Past History
<Bryce Woody PA-C - Last Filed: 01/17/25 12:31>
Past History
ED Past Medical History: Other (Kidney stones)
ED Past Surgical History: Other
Social History
Tobacco: Non-smoker
Employment: Employed
Review of Systems
<Bryce Woody PA-C - Last Filed: 01/17/25 12:31>
Review of Systems
Allergies reviewed?: Yes
All Other Systems: ROS reviewed and negative except as documented in HPI and ROS
Phy Exam
<Bryce Woody PA-C - Last Filed: 01/17/25 12:31>
Physical Exam
Physical Exam:
GEN: Well appearing, NAD, WDWN
HEENT: Oral mucosa moist, no scleral icterus, 3+ tonsillar hypertrophy with exudates bilaterally, uvula midline, no peritonsillar swelling or edema. Positive bilateral anterior cervical adenopathy
Cardiac: Regular rate
Lung: No respiratory distress, no tachypnea
MSK: No gross deformity or injuries
Skin: Good color, no pallor or jaundice, no rashes
Neuro: AO x3, moves all extremities freely
Psych: Calm, cooperative
Course
<Bryce Woody PA-C - Last Filed: 01/17/25 12:31>
Orders/Labs/Results
Orders:
Orders
01/17/25 09:11
Dexamethasone Sod Phosphate [Decadron] 10 mg IV NOW STA
Ketorolac [Toradol] 15 mg IV NOW STA
01/17/25 09:17
Monotest Urgent
Vital Signs
Initial and Last Documented VS:
Initial Vital Signs
Temp Pulse Resp BP Pulse Ox
97.6 F 125 16 147/86 98
01/17/25 09:00 01/17/25 09:00 01/17/25 09:00 01/17/25 09:00 01/17/25 09:00
Last Documented Vital Signs
Temp Pulse Resp BP Pulse Ox
97.6 F 86 16 138/74 98
01/17/25 09:00 01/17/25 11:00 01/17/25 11:00 01/17/25 11:00 01/17/25 11:00
<Jeffrey Powell, DO - Last Filed: 01/17/25 09:23>
Orders/Labs/Results
Orders:
Orders
01/17/25 09:11
Dexamethasone Sod Phosphate [Decadron] 10 mg IV NOW STA
Ketorolac [Toradol] 15 mg IV NOW STA
01/17/25 09:17
Monotest Urgent
Vital Signs
Initial and Last Documented VS:
Initial Vital Signs
Temp Pulse Resp BP Pulse Ox
97.6 F 125 16 147/86 98
01/17/25 09:00 01/17/25 09:00 01/17/25 09:00 01/17/25 09:00 01/17/25 09:00
Last Documented Vital Signs
Temp Pulse Resp BP Pulse Ox
97.6 F 86 16 138/74 98
01/17/25 09:00 01/17/25 11:00 01/17/25 11:00 01/17/25 11:00 01/17/25 11:00
<Bryce Woody PA-C - Last Filed: 01/17/25 12:31>
MDM/Problems Addressed
MDM/Problems Addressed:
No clinical evidence of peritonsillar or retropharyngeal abscess. Monotest negative, certainly could represent early phase of illness however given that she meets all 5 Centor criteria we will treat empirically with antibiotics and steroids
<Bryce Woody PA-C - Last Filed: 01/17/25 12:31>
*Critical Care Note
Total Time (30-74mins, 75-104mins- exclusive of procedures): Not Applicable
ED Attending Note
<Bryce Woody PA-C - Last Filed: 01/17/25 12:31>
-
Portions of this chart may have been created with voice recognition software.� Occasional wrong word or��sound alike� substitutions may have occurred due to the inherent limitations of voice recognition software.
<Jeffrey Powell DO - Last Filed: 01/17/25 09:23>
ED Attending Note
Patient seen and examined by attending physician: Yes
I performed the substantive portion of visit, reviewed & personally made and approve the management plan that is documented in note by myself or ANIA.: Yes
ED Attending Note:
agree with a/p
Discharge Plan
Departure
Patient Disposition: Home (Routine Discharge)
Date of Disposition: 01/17/25
Time of Disposition: 10:54
Patient with high blood pressure during this ER visit?: No
Discharge Problem:
Exudative tonsillitis
Instructions: Strep throat in adults
Prescriptions:
New
azithromycin [Zithromax] 250 mg tablet
250 mg PO DAILY Qty: 6 0RF
Rx Instructions:
500mg PO on day 1 then 250mg po qd x 4d
methylprednisolone [Medrol (Kaveh)] 4 mg tablets,dose pack
See Rx Instructions .ROUTE .COMPLEX Qty: 21 0RF
Rx Instructions:
orally per package directions
No Action
prenat.vits,seth,seg-aypl-rppbe Tablet
1 tab PO QHS
acetaminophen 325 mg Tablet
650 mg PO Q4HPRN PRN (Reason: mild pain) Qty: 0 0RF
ibuprofen 600 mg Tablet
600 mg PO Q6HPRN PRN (Reason: moderate pain/cramps) Qty: 0 0RF
nifedipine 30 mg Tablet Extended Release
30 mg PO DAILY Qty: 30 0RF
nifedipine [Procardia XL] 30 mg tablet extended release 24hr
30 mg PO DAILY Qty: 30 0RF
ferrous sulfate [iron] 325 mg (65 mg iron) tablet
325 mg PO DAILY Qty: 30 0RF
ondansetron 4 mg tablet,disintegrating
4 mg PO Q8H PRN (Reason: nausea and vomiting) 4 Days Qty: 12 0RF
Referrals:
RASHAD MILLER MD [Family Provider] -
Interventions
Interventions:
*Risk Screen - Suicide Last Done: 01/17/25 09:00
*General Assessment Last Done: 01/17/25 09:00
*Neglect/Abuse Screening Last Done: 01/17/25 09:00
*ED- Fall Risk Assessment Last Done: 01/17/25 09:11
*ED COVID-19 Vaccine History Last Done: 01/17/25 09:11
*Nursing Disposition Last Done: 01/17/25 11:00
ED-EENT Assessment Last Done: 01/17/25 09:11
ED- Pulmonary Assessment Last Done: 01/17/25 09:11
Discharge Date and Time
Discharge Date/Time: 01/17/25 11:01
Print Language: KHMER
[2025-01-17] MEDS: DECADRON 10 MG IV (09:21)
[2025-01-17] MEDS: TORADOL 15 MG IV (09:21)
[2025-01-17 10:51] LABS: Monotest Negative (Negative)
[2025-01-17 11:00] VITALS: BP 138/74
== END 2025-01-17 11:01 | disposition home or self-care (01) ==
LOC: EMR 08:57
PROVIDERS: Physician Assistant; EMERGENCY PHYSICIAN Emergency Medicine; FAMILY PHYSICIAN Family Medicine
DX: J03.90 Acute tonsillitis, unspecified (principal)
CPT/HCPCS: 96374; 96375; 99284; 86308

== ENCOUNTER → 2025-02-01 09:41 | Outpatient (REF) | payer OTHER, SELFPAY ==
[2025-02-03 17:34] LABS: Quantiferon Mitogen minus NIL 9.97 IU/mL; Quantiferon NIL 0.03 IU/mL; Quantiferon Plus TB1 minus NIL 0.02 IU/mL (<=0.34); Quantiferon Plus TB2 minus NIL 0.02 IU/mL (<=0.34); Quantiferon TB Gold Plus Negative (Negative)
== END ==
LOC: OHS 09:41
PROVIDERS: ATTENDING PHYSICIAN Nurse Practitioner Family
DX: Z23 Encounter for immunization (principal)
CPT/HCPCS: 36415; 86480

== ENCOUNTER 2025-07-21 11:38 | Inpatient (IN) | payer BC, SELFPAY ==
[2025-07-20] VITALS (15 sets, daily range): BP systolic 104–152; BP diastolic 57–97; BMI 32.9
--- NOTE | 2025-07-20 08:36 | ED.GENMED ---
History of Present Illness
General
Chief Complaint: Abdominal Symptoms
Source: patient
Exam Limitations: none
Time Seen by Provider: 07/20/25 08:22
Nursing documentation reviewed up to this point in time: agreed with
History of Present Illness
History of Present Illness:
35-year-old female with history as noted presents to the ER for evaluation of pelvic pain and vomiting in the setting of recent flulike illness. Patient reports that she woke up around 1 AM with severe nausea and has been vomiting since. She
reports severe pain in the lower abdomen/pelvic region. She says that a few days ago on Thursday she started with a mild flulike illness preceding the symptoms which included headaches, body aches, sore throat and chills. She says that yesterday
she went to see [facility] doctor and got some IV vitamins and fluids and was feeling better before waking up with the symptoms today. She denies any diarrhea this morning. She denies any urinary symptoms; she does have a history of kidney stones
but says this does not feel similar. She does note that she has been having some dark red/brown vaginal bleeding over the past 3 to 4 weeks which is abnormal for her�she was supposed to see her CODE CLERK (Dr. Jo) earlier this week but was unable
to attend due to flulike illness. She currently has an IUD in place since March. Patient also makes note that she has been on GLP-1 since January but has not had any significant GI symptoms with this or any changes to this regimen.
Past History
Past History
ED Past Medical History: Other (Kidney stones)
ED Past Surgical History: Other
Social History
Tobacco: Non-smoker
Employment: Employed
Review of Systems
Review of Systems
All Other Systems: ROS reviewed and negative except as documented in HPI and ROS
Constitutional: Reports fatigue and chills; Denies fever
EENT: Reports sore throat and runny nose
Respiratory: Denies cough or trouble breathing
Cardiac: Denies chest pain
ABD/GI: Reports abdominal pain, nausea and vomiting; Denies diarrhea
: Reports bleeding; Denies dysuria or flank pain
Musculoskeletal: Denies neck pain or back pain
Neurological: Reports dizzy and headache
Phy Exam
Physical Exam
Physical Exam:
General: Awake, alert, appears anxious and in pain
Head: Normocephalic, atraumatic
Eyes: Conjunctiva normal, sclera anicteric
Throat: Airway intact, handling secretions
Neck: Trachea midline, moving freely without apparent pain
Lungs: Breathing comfortably with no hypoxia or tachypnea and no evidence of cyanosis
Heart: Regular rate
Abd: Soft, non distended, tender to palpation in the lower abdomen with no palpable masses
Neuro: Grossly intact
Skin: Moist, warm
Extremities: Warm and well-perfused
Scores
Heart Failure Risk
Heart Failure Risk Score: Not Applicable
Heart Score for Chest Pain Patients
STEMI patient?: Not applicable
Withdrawal Assessment of Alcohol
Withdrawal Assessment Completed?: Not applicable
Course
Orders/Labs/Results
Orders:
Orders
07/20/25 08:22
Ondansetron Injectable [Zofran] 4 mg IV NOW STA
07/20/25 08:23
Urinalysis Reflex To Culture Urgent
0.9% Sodium Chloride 1000 ml [Nss] 1,000 ml IV BOLUS
Test Result ONCE
07/20/25 08:35
CT Abd/pelvis W Iv Cont Urgent
Comment:
Reason For Exam: vomiting, lower abd/pelvic pain
07/20/25 08:36
Electrocardiogram (*1) Urgent
Reason for Study: Abdominal Pain
EKG- Treatment ONCE
HYDROmorphone [Dilaudid] 0.5 mg IV NOW STA
07/20/25 08:42
COVID-19 Antigen Urgent
Source: Nasal Swab
Complete Blood Count/With Diff Urgent
Comprehensive Metabolic Panel Urgent
HCG, Serum Qualitative Screen Urgent
Lipase Urgent
Influenza A+B Rapid Molecular Urgent
KOBY Source: Nasal Swab
Specimen Description:
07/20/25 08:48
Vital Signs- Treatment ONCE
Frequency: Once
Comment: temperature please
07/20/25 08:57
Acetaminophen 1000MG/100Ml [Ofirmev] 1,000 mg in 100 ml IV ONCE
Acetaminophen IV Indication:: ED Narcotic History-ONCE
HYDROmorphone [Dilaudid] 0.5 mg IV NOW STA
07/20/25 11:00
0.9% Sodium Chloride 500 ml [Nss] 500 ml IV 100 mls/hr
07/20/25 11:17
GASTROINTESTINAL CONSULT Urgent
Consulting Provider: Ligia Garland
Was physician already notified: Yes
Ketorolac [Toradol] 15 mg IV NOW STA
US Pelvis W Transvag Combined Urgent
Reason For Exam: pelvic pain, r/o torsion
07/20/25 12:17
Diphenhydramine [Benadryl] 25 mg IV NOW STA
Metoclopramide [Reglan] 10 mg IV NOW STA
Abnormal Lab Results
07/20/25
08:42
WBC 11.3 H 10^3/uL
(4.8-10.8)
MCHC 32.4 L g/dL
(33.0-37.0)
Absolute Neuts (auto) 9.9 H 10^3/uL
(1.4-6.5)
Absolute Lymphs (auto) 0.9 L 10^3/uL
(1.2-3.4)
Neutrophils % 87.4 H %
(42.2-75.2)
Lymphocytes % 7.7 L %
(20.5-51.1)
Carbon Dioxide 21 L mmol/L
(22-30)
Glucose 128 H mg/dl
(70-99)
07/20/25 08:42
07/20/25 08:42
Vital Signs
Initial and Last Documented VS:
Initial Vital Signs
Pulse Resp BP Pulse Ox
90 18 152/97 100
07/20/25 08:22 07/20/25 08:22 07/20/25 08:22 07/20/25 08:22
Last Documented Vital Signs
Temp Pulse Resp BP Pulse Ox
37.1 C 74 16 111/60 94
07/20/25 08:53 07/20/25 11:03 07/20/25 11:03 07/20/25 11:03 07/20/25 11:03
MDM/Problems Addressed
Differential Diagnosis Includes:
Viral illness/influenza, /ectopic , UTI/pyelonephritis, nephrolithiasis, gastroenteritis or colitis, bowel obstruction, ovarian cyst, ovarian torsion, pancreatitis; cholelithiasis/cholecystitis somewhat less likely based on location
MDM/Problems Addressed:
35-year-old female presents to the ER for evaluation of lower abdominal/pelvic pain with severe nausea and vomiting in the setting of recent flulike illness the past few days and irregular vaginal bleeding the past few weeks. She is hypertensive
but otherwise normal vitals. Physical exam is as noted. Plan to place an IV check labs including a CBC and a CMP, lipase, hCG. Will send urinalysis. Swab for COVID and flu. Check CT abdomen pelvis. Provide fluids, pain control, antiemetic.
EKG for QTc monitoring. Reassess after the above.
Initial labs reviewed: CBC shows slight leukocytosis to 11.3. Chemistry showed marginal acidosis likely related to GI losses. LFTs normal. Lipase normal. hCG negative. COVID and flu negative. CT is pending. Patient did require second round of
pain medications but much more comfortable on reassessment after this. Continue to monitor.
CT shows moderate colitis no other acute abnormalities. Patient sleeping comfortably on reassessment, vitals normal. Continue to monitor here, trial p.o. and reassess.
Patient reports significant increase in pain once again now status post 2 rounds of IV Dilaudid as well as IV Tylenol. Will add IV Toradol. Ovaries appeared normal on CT but will check pelvic ultrasound to completely rule out torsion. I did
discuss the case with GI to consult. At this point I suspect she will require admission for supportive care for what is likely viral syndrome with colitis/enteritis.
Ultrasound no signs of torsion. Patient with continued nausea will treat with Reglan. Discussed case with hospitalist for admission.
*Radiology
Radiology exam reviewed: radiology read reviewed
*Pulse Oximetry
SaO2: 100
Oxygen Mode of Delivery: Room air
Patient hypoxic: no (100%)
*EKG
Interpreted by ED Provider?: Yes
Heart Rate: 84
Rate: normal
Rhythm: sinus
[place]: normal axis
Interval: normal interval and normal QT interval
QRS Pattern: normal QRS
Ischemia: no ischemia
*Critical Care Note
Total Time (30-74mins, 75-104mins- exclusive of procedures): Not Applicable
Data Reviewed
Review of Other/Old Records Reveals: Labs and Records
Source: patient and records
Patient Management
Discussion with other providers: Hospitalist (Discussed with hospitalist) and Customer Care Voice Consultant (Discussed with fill plant operator)
Escalation/DeEscalation of care consider admission/obs:
Admission indicated
ED Attending Note
-
Portions of this chart may have been created with voice recognition software.� Occasional wrong word or��sound alike� substitutions may have occurred due to the inherent limitations of voice recognition software.
Discharge Plan
Departure
Patient Disposition: Admit
Date of Disposition: 07/20/25
Time of Disposition: 12:42
Admit to doctor: Klarissa
Presentation/result/management discussed w/ accepting MD/DO: Hospitalist
Patient with high blood pressure during this ER visit?: Yes
Discharge Problem:
Colitis, Nausea & vomiting
Prescriptions:
No Action
prenat.vits,seth,xcv-lkqy-ofyqs Tablet
1 tab PO QHS
acetaminophen 325 mg Tablet
650 mg PO Q4HPRN PRN (Reason: mild pain) Qty: 0 0RF
ibuprofen 600 mg Tablet
600 mg PO Q6HPRN PRN (Reason: moderate pain/cramps) Qty: 0 0RF
nifedipine 30 mg Tablet Extended Release
30 mg PO DAILY Qty: 30 0RF
nifedipine [Procardia XL] 30 mg tablet extended release 24hr
30 mg PO DAILY Qty: 30 0RF
ferrous sulfate [iron] 325 mg (65 mg iron) tablet
325 mg PO DAILY Qty: 30 0RF
ondansetron 4 mg tablet,disintegrating
4 mg PO Q8H PRN (Reason: nausea and vomiting) 4 Days Qty: 12 0RF
azithromycin [Zithromax] 250 mg tablet
250 mg PO DAILY Qty: 6 0RF
Rx Instructions:
500mg PO on day 1 then 250mg po qd x 4d
methylprednisolone [Medrol (Kaveh)] 4 mg tablets,dose pack
See Rx Instructions .ROUTE .COMPLEX Qty: 21 0RF
Rx Instructions:
orally per package directions
Interventions
Interventions:
*Risk Screen - Suicide Last Done: 07/20/25 08:46
*General Assessment Last Done: 07/20/25 08:46
*Neglect/Abuse Screening Last Done: 07/20/25 08:46
*ED- Fall Risk Assessment Last Done: 07/20/25 08:46
*ED COVID-19 Vaccine History Last Done: 07/20/25 08:46
*ED Influenza Vaccine History Last Done: 07/20/25 08:46
EG-Dcwefq-Ylpglfbbmt Assessment Last Done: 07/20/25 08:47
Discharge Date and Time
Print Language: URUGUAYAN
[2025-07-20] MEDS: DILAUDID 0.5 MG IV ×3 (08:43→16:36)
[2025-07-20] MEDS: NSS 1000 IV ×3 (08:44→21:30)
[2025-07-20] MEDS: ZOFRAN 4 MG IV ×2 (08:45→18:36)
[2025-07-20 09:02] LABS: Hematocrit 41.4 % (37.0-47.0); Hemoglobin 13.4 g/dL (12.0-16.0); Mean Corp Hgb Conc. 32.4 g/dL (33.0-37.0); Mean Corpuscular Volume 85.5 fL (81.0-99.0); Nucleated Red Blood Cells % 0 %; Platelet Count 287 10^3/uL (130-400); Red Cell Dist. Width 14.2 % (11.5-14.5)
[2025-07-20] MEDS: OFIRMEV 100 IV (09:06)
[2025-07-20 09:09] LABS: HCG, Serum Qualitative Screen Negative
[2025-07-20 09:22] LABS: COVID-19 Antigen Negative (Negative)
[2025-07-20 09:25] LABS: ALT (SGPT) 25 U/L (0-35); AST (SGOT) 19 U/L (14-36); Albumin 4.7 g/dl (3.5-5.0); Alkaline Phosphatase 78 U/L (38-126); Blood Urea Nitrogen 11 mg/dl (7-17); Calcium 9.6 mg/dl (8.4-10.2); Carbon Dioxide 21 mmol/L (22-30); Chloride 106 mmol/L (98-107); Estimated Creatinine Clearance > 125 ml/min; Glucose 128 mg/dl (70-99); Lipase 88 U/L (23-300); Potassium 3.9 mmol/L (3.5-5.1); Sodium 140 mmol/L (135-145); Total Protein 8.1 g/dl (6.3-8.2); eGFR > 60.00
[2025-07-20] MEDS: NSS 500 IV (10:37)
[2025-07-20] MEDS: TORADOL 15 MG IV (11:26)
[2025-07-20] MEDS: REGLAN 10 MG IV (12:30)
[2025-07-20] MEDS: BENADRYL 25 MG IV (12:30)
--- NOTE | 2025-07-20 12:57 | HPS.HSE ---
Family Physician
-
Family Physician: RASHAD MILLER MD
Chief Complaint
-
abdominal pain, vomiting
History of Present Illness
35-year-old female past medical history of nephrolithiasis presenting with lower abdominal and pelvic pain and vomiting since 1 AM this morning. 3 days ago she started developing flulike symptoms with headache, body aches, sore throat and fever of
101, chills. Yesterday she went to see [facility] physician and got IV fluids and vitamins and was feeling better until today. Denies diarrhea.
She has been having some intermittent dark red/brown vaginal bleeding over the past 3 to 4 weeks which is abnormal for her. She was supposed to see Dr Donovan earlier this week but was unable to attend due to her flulike symptoms. She has an IUD
that was in place since March. Denies any active bleeding at this time.
Denies any sick contacts.
She has been on GLP-1 agonist since January but has not had any GI symptoms associated with this.
Denies any recent antibiotic use
Denies smoking or alcohol drugs.
Medical History
Past Medical History
Past Medical History: Reports Other (nephrolithiasis )
Past Surgical History: Reports Other ( Breast reduction)
Social History
Tobacco: Non-smoker
Alcohol: None
Drug: None
Family History
Family History: Not pertinent
Allergies / Home Medications
Allergies reflects when Allergies were last updated in [employer].
Home Medications with original date entered in [employer]
Allergy/Medication List:
Allergies
Allergy/AdvReac Type Severity Reaction Status Date / Time
Penicillins Allergy Hives Verified 07/20/25 08:24
Home Medications
prenat.vits,seth,nsf-pdwa-ehbkd 1 tab PO QHS Supplement 10/26/23
acetaminophen 325 mg tablet 650 mg (2 x 325 mg) PO Q4HPRN PRN mild pain #0 tabs 11/19/23
ibuprofen 600 mg tablet 600 mg PO Q6HPRN PRN moderate pain/cramps #0 tabs 11/19/23
ferrous sulfate 325 mg (65 mg iron) tablet (iron) 325 mg PO DAILY #30 tabs 11/20/23
nifedipine 30 mg tablet,extended release 30 mg PO DAILY #30 tabs 11/20/23
nifedipine 30 mg tablet,extended release 24 hr (Procardia XL) 30 mg PO DAILY #30 tabs 11/20/23
ondansetron 4 mg disintegrating tablet 4 mg PO Q8H PRN nausea and vomiting 4 days #12 tabs 07/21/24
azithromycin 250 mg tablet (Zithromax) 250 mg PO DAILY #6 tabs 01/17/25
methylprednisolone 4 mg tablets in a dose pack (Medrol (Kaveh)) See Rx Instructions PO .COMPLEX #21 ea 01/17/25
Review of Systems
-
History Source: Patient
A 12 point ROS was completed and negative except as noted: Yes
Constitutional: Reports No Symptoms
EENT: Reports No Symptoms
Respiratory: Reports No Symptoms
Cardiac: Reports No Symptoms
Abdomen/GI: Reports See HPI
: Reports No Symptoms
Musculoskeletal: Reports No Symptoms
Skin: Reports No Symptoms
Neurological: Reports No Symptoms
Endocrine: Reports No Symptoms
Hematologic/Lymphatic: Reports No Symptoms
Psych: Reports No Symptoms
Physical Exam
Vital Signs
Vital Signs
Temp Pulse Resp BP Pulse Ox
98.8 F 74 16 111/60 94
07/20/25 08:53 07/20/25 11:03 07/20/25 11:03 07/20/25 11:03 07/20/25 11:03
Physical Exam
General: Well Developed, Well Nourished and No Apparent Distress
HEENT: NormoCephalic, Moist mucous membranes and Atraumatic
Respiratory: Clear
Cardiac: S1/S2 and Regular Rhythm; No Murmur or Rub
GI: Soft, Non Distended, Normal Bowel Sounds and Tender (lower abdomen center tendernes s); No Organomegaly
Rectal: Deferred by Provider
Musculoskeletal: No Clubbing, No Cyanosis and No Edema
Skin: No Rash
Neuro: Nonfocal/grossly intact
Laboratory Results
-
07/20/25 08:42
07/20/25 08:42
Laboratory Results
Total Bilirubin 0.7 mg/dl (0.2-1.3) 07/20/25 08:42
AST 19 U/L (14-36) 07/20/25 08:42
ALT 25 U/L (0-35) 07/20/25 08:42
Alkaline Phosphatase 78 U/L (38-126) 07/20/25 08:42
Lipase 88 U/L (23-300) 07/20/25 08:42
Data Reviewed
-
Lab Data: Labs Reviewed by me
Old Records: Reviewed
Impression/Plan
-
IMPRESSION:
PLAN:
# Acute colitis of transverse/descending/sigmoid colon likely viral
- CT abdomen pelvis shows findings consistent with moderate colitis involving the transverse colon, descending colon and sigmoid colon likely infectious or inflammatory
- Clears, advanced diet as tolerated
- IV fluids
- Zofran, ketorolac, Dilaudid,
-Gi consulted
# Viral URI
- COVID, influenza negative
# Abnormal uterine bleeding
# History of IUD placement in March
- Pelvic ultrasound shows small amount of pelvic free fluid, may be physiologic, IUD in proper position
- Outpatient follow-up with gynecology
History of nephrolithiasis
Obesity
- On GLP-1 agonist
Full code
DVT prophylaxis�SCDs
Clears
--- NOTE | 2025-07-20 13:05 | CON.GI ---
Addendum entered and electronically signed by Ligia Garland DO 07/20/25 16:14:
Patient seen and examined independently of LUIS. I agree with her note with my additions below
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 She has a history of nephrolithiasis. On Thursday had viral-like symptoms with headache chills fever to 101 with no significant abdominal symptoms. Had IV fluids at her PCP on
Thursday and then felt great. Last night around 1 AM she woke from sleep with acute onset right pelvic pain that was intense followed by multiple episodes of vomiting. No diarrhea. No fever on admission. Mild leukocytosis. Imaging below shows
questionable thickening in the colon.
Still no stools.
Symptoms are improving. Still with mild right sided pelvic pain. Normal appendix on imaging. No dilation or signs of obstruction.
Overall, most likely viral in nature. All acute symptoms, plenty of sick contacts in the emergency room
No diarrhea
IV fluids, supportive care. If symptoms persist please call us back
OBJECTIVE DATA REVIEW (obtained from review of labs/meditech/outside scanned records/previous other providers reports):
-- 07/20/2025 pelvic ultrasound 07/20/2025 small amount of pelvic fluid no evidence of ovarian torsion IUD in appropriate position
-- 07/20/2025 CT abdomen pelvis with IV and no oral contrast. Normal gallbladder, no ductal dilatation, normal spleen, normal pancreas. No significant dilation of the stomach or small bowel. Mild fecal retention. Questionable bowel wall
thickening and inflammatory change from the transverse to the sigmoid colon with sparing of the rectum and ascending.
--- 07/20/2025 mild leukocytosis of 11.3 otherwise normal CBC, normal CMP, lipase, negative test no urinalysis, negative COVID test
Original Note:
Consultation
-
Date/Time Consultation Requested: 07/20/25 1115
Date/Time Consultation Performed: 07/20/25 1300
Requesting Provider: jesus Cheng MD
Performing Provider: LUIS Harding, Ligia Walp, DO
Reason for Consultation: abdominal pain
Medical History
Chief Complaint / HPI
History of Present Illness:
Pt is a 35yo with hx nephrolithiasis with onset of flu like symptoms with headache several days ago with temp up to 101. . She also admits vaginal bleeding intermittently with IUD placed in March. She was due to see CIGAR BINDER this week but canceled as
was not feeling well. She went of IVF 07/19 with PCP and felt improved but has onset of severe mid lower abdominal pain with stabbing sensation and onset of intractable nausea and vomiting. She is now feeling drowsy but slight improvement
medications given on admission. Imaging on admission with CT noted moderate colitis in transverse, descending and sigmoid, mild constipation and pelvic US with small amount of free fluid no ovarian torsion with IUD in appropriate position. Pt
denies any recent travel, abx, sick contacts or tainted foods. Pt otherwise admits to GERD but denies any diarrhea, constipation, blood or black in stools. No hx EGD or colonoscopy in past. + wt loss 42 lbs with use of GPL-1. Labs on admission
with WBC 11,300, with normal chemistry.
Past Medical History
Past Medical History: Other (nephrolithiasis )
Past Surgical History: Other (breast reduction )
Social History
Tobacco: Non-Smoker
Alcohol: None
Drug: None
Personal:
Living: With Family
Employment: Employed
Family History
Family History: Other (no family hx GI issues, no family hx IBD)
Allergies / Home Medications
Allergy/AdvReac Type Severity Reaction Status Date / Time
Penicillins Allergy Hives Verified 07/20/25 08:24
�Medication �Instructions �Recorded
prenat.vits,seth,hqr-dkzd-hmlmf 1 tab PO QHS Supplement 10/26/23
acetaminophen 325 mg tablet 650 mg (2 x 325 mg) PO Q4HPRN PRN 11/19/23
mild pain #0 tabs
ibuprofen 600 mg tablet 600 mg PO Q6HPRN PRN moderate 11/19/23
pain/cramps #0 tabs
ferrous sulfate 325 mg (65 mg 325 mg PO DAILY #30 tabs 11/20/23
iron) tablet (iron)
nifedipine 30 mg tablet,extended 30 mg PO DAILY #30 tabs 11/20/23
release
nifedipine 30 mg tablet,extended 30 mg PO DAILY #30 tabs 11/20/23
release 24 hr (Procardia XL)
ondansetron 4 mg disintegrating 4 mg PO Q8H PRN nausea and 07/21/24
tablet vomiting 4 days #12 tabs
azithromycin 250 mg tablet 250 mg PO DAILY #6 tabs 01/17/25
(Zithromax)
methylprednisolone 4 mg tablets in See Rx Instructions PO .COMPLEX 01/17/25
a dose pack (Medrol (Kaveh)) #21 ea
Review of Systems
-
History Source: Patient
Constitutional: Reports Fever and Weight Loss ( 42 lb with recent GPL1 use )
EENT: Reports No Symptoms
Respiratory: Reports No Symptoms
Cardiac: Reports No Symptoms
Abdomen/GI: Reports Abdominal Pain (mid lower abdomen ), Nausea, Vomiting and Other (recent vaginal bleeding )
Neurological: Reports Weakness
Hematologic/Lymphatic: Reports Bleeding (vaginal bleeding)
Vital Signs
Temp Pulse Resp BP Pulse Ox
98.8 F 74 16 111/60 94
07/20/25 08:53 07/20/25 11:03 07/20/25 11:03 07/20/25 11:03 07/20/25 11:03
Physical Exam
Exam
General: Other (sleepy but arousable )
HEENT: Normocephalic and Anicteric
Respiratory: Clear
Cardiac: Regular Rhythm
GI: Soft, Non Distended and Tender (mild lower abdomen in pinpoint locations)
Musculoskeletal: No Clubbing and No Cyanosis
Skin: Warm and Dry
Neuro: Other (awakens to voice and appropriate in conversation)
Psych: Calm
Results
WBC 11.3 10^3/uL (4.8-10.8) H 07/20/25 08:42
Hgb 13.4 g/dL (12.0-16.0) 07/20/25 08:42
Hct 41.4 % (37.0-47.0) 07/20/25 08:42
MCV 85.5 fL (81.0-99.0) 07/20/25 08:42
Plt Count 287 10^3/uL (130-400) 07/20/25 08:42
Absolute Neuts (auto) 9.9 10^3/uL (1.4-6.5) H 07/20/25 08:42
Sodium 140 mmol/L (135-145) 07/20/25 08:42
Potassium 3.9 mmol/L (3.5-5.1) 07/20/25 08:42
Chloride 106 mmol/L (98-107) 07/20/25 08:42
Carbon Dioxide 21 mmol/L (22-30) L 07/20/25 08:42
BUN 11 mg/dl (7-17) 07/20/25 08:42
Creatinine 0.8 mg/dL (0.6-1.0) 07/20/25 08:42
Calcium 9.6 mg/dl (8.4-10.2) 07/20/25 08:42
Total Bilirubin 0.7 mg/dl (0.2-1.3) 07/20/25 08:42
AST 19 U/L (14-36) 07/20/25 08:42
ALT 25 U/L (0-35) 07/20/25 08:42
Alkaline Phosphatase 78 U/L (38-126) 07/20/25 08:42
Lipase 88 U/L (23-300) 07/20/25 08:42
Diagnostic Image Results:
07/20/25 US Pelvis W Transvag Combined
1. Small amount of pelvic free fluid, which may be physiologic.
2. No evidence of ovarian torsion on either side.
3. IUD is in appropriate position.
07/20/25 CT Abd/pelvis W Iv Cont
1. Findings consistent with moderate colitis involving the transverse colon, descending colon, and sigmoid colon, likely infectious or inflammatory.
2. The appendix is of normal appearance.
3. IUD is in appropriate position.
mild constipation
Prior GI Procedures:
EGD: none
Colonoscopy: none
Assessment / Plan
-
Pt is a 35yo with hx nephrolithiasis with onset of flu like symptoms with headache several days ago with temp up to 101. She also admits vaginal bleeding intermittently with IUD placed in March. She was due to see CIGAR BINDER this week but canceled as was
not feeling well. She went of IVF 07/19 with PCP and felt improved but has onset of severe mid lower abdominal pain with stabbing sensation and onset of intractable nausea and vomiting. She is now feeling drowsy but slight improvement medications
given on admission. Imaging on admission with CT noted moderate colitis in transverse, descending and sigmoid, mild constipation and pelvic US with small amount of free fluid no ovarian torsion with IUD in appropriate position. Pt denies any
recent travel, abx, sick contacts or tainted foods. Pt otherwise admits to GERD but denies any diarrhea, constipation, blood or black in stools. No hx EGD or colonoscopy in past. + wt loss 42 lbs with use of GPL-1. Labs on admission with WBC
11,300, with normal chemistry.
-lower mid abdominal pain with nausea/vomiting
-CT with moderate transverse, descending and sigmoid colitis
-vaginal bleeding with hx IUD placement in March
-recent wt loss with GPL-1 therapy
-leukocytosis
-hx nephrolithiasis
PLAN:
Etiology of symptoms with concern for colitis noted on CT though no diarrhea and very pinpoint pain vs CIGAR BINDER related with vaginal bleeding and recent IUD placement vs other
US and CT reviewed
Pt with some improvement after ER medications
if diarrhea develops check stool studies
monitor for fever - moreno culture if noted after admission
if continued symptoms consider CIGAR BINDER eval to check IUD placement though appears to be in good placement per CT and US
clear diet as tolerated
antiemetic
antibiotics held on admission
-
-
Thank you for consultation and allowing me to participate in the patient's care. Please call the online media buyer GI physician during the after hours with any questions or concerns.
[2025-07-20] MEDS: NSS IV (16:51)
[2025-07-20] MEDS: TORADOL 10 MG IV (18:35)
[2025-07-20 21:56] LABS: Urine Character Clear (Clear)
[2025-07-20 22:27] LABS: Urine Red Blood Cell 0-2 /HPF (0-2); Urine Squamous Cell >30 /LPF (Few)
[2025-07-20] MEDS: ATARAX 10 MG PO (22:50)
[2025-07-21] MEDS: NSS 1000 IV ×4 (02:31→18:29)
[2025-07-21] MEDS: DILAUDID 0.5 MG IV ×2 (02:50→11:21)
[2025-07-21] MEDS: TORADOL 10 MG IV ×3 (05:09→22:49)
[2025-07-21 07:00] LABS: ALT (SGPT) 17 U/L (0-35); AST (SGOT) 14 U/L (14-36); Albumin 3.1 g/dl (3.5-5.0); Alkaline Phosphatase 55 U/L (38-126); Blood Urea Nitrogen 8 mg/dl (7-17); Calcium 8.3 mg/dl (8.4-10.2); Carbon Dioxide 23 mmol/L (22-30); Chloride 111 mmol/L (98-107); Estimated Creatinine Clearance > 125 ml/min; Glucose 79 mg/dl (70-99); Potassium 3.8 mmol/L (3.5-5.1); Sodium 135 mmol/L (135-145); Total Protein 5.8 g/dl (6.3-8.2); eGFR > 60.00
[2025-07-21 07:30] VITALS: BP 114/61
[2025-07-21 07:32] LABS: Hematocrit 32.0 % (37.0-47.0); Mean Corp Hgb Conc. 30.9 g/dL (33.0-37.0); Mean Corpuscular Volume 87.4 fL (81.0-99.0); Red Cell Dist. Width 14.4 % (11.5-14.5)
[2025-07-21 07:34] LABS: Hemoglobin 9.9 g/dL (12.0-16.0); Nucleated Red Blood Cells % 0 %
[2025-07-21 07:35] LABS: Platelet Count 193 10^3/uL (130-400)
[2025-07-21] MEDS: NSS (PRESERVATIVE FREE) 10 ML IV (08:26)
[2025-07-21] MEDS: PROTONIX IV 40 MG IV (08:26)
[2025-07-21] MEDS: ZOLOFT 100 MG PO (08:26)
--- NOTE | 2025-07-21 09:32 | W.PN.HOSP.TC ---
Addendum entered and electronically signed by Dio Carmen MD 07/21/25 14:12:
Addendum
Patient is having lower abdominal/suprapubic discomfort, reported similar to cervical dilatation she had in the past. She is having vaginal spotting, she has IUD which is a properly placed by ultrasound.
GI evaluated the patient recommended CHIEF STATION ENGINEER evaluation.
Consulted CHIEF STATION ENGINEER. Appreciate help
- Saw the patient again. No vaginal bleeding. She is feeling better and requesting okay to shower
End
Original Note:
Today's Communication/Plan
-
IVF
Pain medicine
f/w GI recommendations
IV Abx
IV PPI
Assessment / Plan
Assessment / Plan
Physical Exam
General: Well Developed, Well Nourished and No Apparent Distress
HEENT: NormoCephalic, Moist mucous membranes and Atraumatic
Respiratory: Clear
Cardiac: S1/S2 and Regular Rhythm; No Murmur or Rub
GI: Soft, Non Distended, Normal Bowel Sounds and Tender (lower abdomen center tenderness s);
Rectal: Deferred by Provider
Musculoskeletal: No Clubbing, No Cyanosis and No Edema
Skin: No Rash
Neuro: Nonfocal/grossly intact
Psych: calm
A/P:
# Acute colitis of transverse/descending/sigmoid colon likely viral
- CT abdomen pelvis shows findings consistent with moderate colitis involving the transverse colon, descending colon and sigmoid colon likely infectious or inflammatory
- She is on liquid diet but not tolerating it. Increasing pain. No fever. Leukocytosis resolved.
Will increase the dose of IV Dilaudid, continue IV fluid. Will add empiric IV antibiotics. Check EKG before given ciprofloxacin. Patient is allergic to penicillin
She was seen by GI but signed off. Will ask GI to reevaluate.
# Viral URI
- COVID, influenza negative
# Acute blood loss anemia with combination of delusional anemia. No clinical evidence of rectal bleeding. Will continue to monitor.
GI prophylaxis.
# Abnormal uterine bleeding
# History of IUD placement in March
- Pelvic ultrasound shows small amount of pelvic free fluid, may be physiologic, IUD in proper position
- Outpatient follow-up with gynecology
History of nephrolithiasis
Obesity
- On GLP-1 agonist
Full code
DVT prophylaxis�SCDs
Clears
Total time spent to see the patient, examined the patient, review data and lab result, discuss treatment plan with patient, nursing staff, GI around 55 minutes
Anticipated Discharge: > 48 hours
Subjective/Interval History
-
Date of Service: July 21, 2025
Still with pain in lower abdomen
Does not feel much better
Objective Data
-
Labs:
Laboratory Results
07/21/25
05:44
WBC 7.1
Hgb 9.9 L D
Hct 32.0 L
Plt Count 193 D
Sodium 135
Potassium 3.8
Chloride 111 H
Carbon Dioxide 23
BUN 8
Creatinine 0.7
Glucose 79
Calcium 8.3 L
Total Bilirubin 0.8
AST 14
ALT 17
Alkaline Phosphatase 55
Vital Signs:
Vital Signs
Temp Pulse Resp BP Pulse Ox
98.1 F 70 16 114/61 98
07/21/25 07:30 07/21/25 07:30 07/21/25 07:30 07/21/25 07:30 07/21/25 07:30
I&O
07/20/25 07/21/25 07/22/25
06:59 06:59 06:59
Intake Total 480 / 480
Balance 480 / 480
[2025-07-21] MEDS: ZOFRAN 4 MG IV (11:21)
[2025-07-21] MEDS: DILAUDID 1 MG IV ×2 (11:51→16:57)
[2025-07-21] MEDS: FLAGYL 500 MG 100 IV ×2 (11:51→19:56)
[2025-07-21] MEDS: CIPRO 200 MG 100 IV (12:57)
--- NOTE | 2025-07-21 13:13 | W.PN.GI.CBS2 ---
Today's Communication / Plan
-
Please see assessment and plan for details.
Assessment / Plan
-
1. Suprapubic pain: I think is more MERCHANDISE FOR RESALE PURCHASING AGENT related given its position, she relates the pain is similar to her menstrual cramps and feels limited when she had a cervical dilation at childbirth. She has no diarrhea, no other abdominal tenderness,
making colitis very unlikely, likely overcall on CT scan. She did have some vaginal bleeding day prior to admission, none since. At this point would consider MERCHANDISE FOR RESALE PURCHASING AGENT evaluation. If she has diarrhea we will check stool studies, will continue
supportive care for now.
Subjective
Subjective
Date of Service: July 21, 2025
Called back to see patient for persistent pain. She still describes suprapubic pain which can be very severe at times, coming in waves. When she is having the pain she feels nauseated though in between waves of pain has no nausea. She has no
other abdominal tenderness. She is not had any bowel movements and denies any diarrhea prior to admission.
Objective
Data Reviewed
Laboratory Data:
Laboratory Results
07/21/25 05:44
07/21/25 05:44
Laboratory Results
Total Bilirubin 0.8 mg/dl (0.2-1.3) 07/21/25 05:44
AST 14 U/L (14-36) 07/21/25 05:44
ALT 17 U/L (0-35) 07/21/25 05:44
Alkaline Phosphatase 55 U/L (38-126) 07/21/25 05:44
Lipase 88 U/L (23-300) 07/20/25 08:42
Vital Signs and I&O:
Vital Signs
Temp Pulse Resp BP Pulse Ox
98.1 F 70 16 114/61 98
07/21/25 07:30 07/21/25 07:30 07/21/25 07:30 07/21/25 07:30 07/21/25 07:30
I&O
07/20/25 07/21/25 07/22/25
06:59 06:59 06:59
Intake Total 480 / 480
Balance 480 / 480
Physical Exam
Physical Exam
General: NAD
Abdomen: normal bowel sounds, soft, mild suprapubic tenderness, no masses or bruits, no ascites
--- NOTE | 2025-07-21 15:07 | CON.MD ---
Consultation - Medical
-
Medical history
Patient is a 35 year old female with PMH significant for an about one and a half year ago, breast reduction surgery, on GLP for weight loss, Minoxidil for hair loss ,and Zoloft for anxiety/depression who has been on IUD in the past without any
issues.Five months Post- she had Mirena placed by DIRECTOR OF ACADEMIC SUPPORT at [facility] without any issues. She reported as expected cramping which settled but she had heavy prolonged periods with his IUD which was unusual for her. She normally had spotting with IUD in
past. She also noticed an odour. She called to clinic and was supposed to follow up last thursday but she felt off with flu like symptoms and missed her appt.
Yesterday at 1 am she had severe crampy pelvic pain associated with multiple episodes of vomiting and she ended up in the ER.She denies any fever, chills, diarrhea, constipation, burning or frequency of urine.
CT Abd/pelvis(07/20/2025) done in the ER was consistent with Colitis.She was started on antibiotics(Cipro/Flagyl)---GI was consulted who suggested it was less likely to be GI issue and more likely to be a Marketing Area Manager issue.
She feels better. Still has cramping requiring Toradol/Dilaudid. But is overall feeling better in terms of nausea/vomiting and frequency of cramps
Past Medical History
Nephrolithiasis,Anxiety/Depression, Insomnia
Past Surgical History
Breast reduction Surgery
Social History
Non smoker, Occasionally drinks alcohol, Has a 20 month old toddler, works in [employer]
Family history
Positive for gynecological cancers including ovarian cancer,and Breast cancer
Home Medications
Zoloft 100mg daily for Anxiety/depression
Hydroxyzine 10mg as needed for Insomnia
Minoxidil 1.25mg daily for hair loss
vitamins
Physical Examination
Well developed, Well nourished and NAD
Anicteric,moist mucous membranes
Chest B/L CTA
S1+S2+ no rubs,murmurs or gallop
On pelvic exam, no visible lesions,some mild pinkish discharge
Abdomen soft, mild tenderness in suprapubic region
Alert, oriented, Normal Bulk, Tone and Strength
Judgement and insight good
CT Abd/pelvis(07/20/2025)
1. Findings consistent with moderate colitis involving the transverse colon, descending colon, and sigmoid colon, likely infectious or inflammatory.
2. The appendix is of normal appearance.
3. IUD is in appropriate position.
She was started on antibiotics(Cipro/Flagyl)---GI was consulted who suggested it was less likely to be GI issue and more likely to be a Marketing Area Manager issue.
Pelvic US (07/20/25)
1. Small amount of pelvic free fluid, which may be physiologic.
2. No evidence of ovarian torsion on either side.
3. IUD is in appropriate position.
Assessment/Plan
Infection most likely secondary to IUD
IUD looks well positioned,would keep it for now
Responded to antibiotics
Send Vaginal swab for Vaginitis Panel
Recommend discontinuing the cipro and adding ceftriaxone and Doxycycline
Monitor for at least 24 hours the response to antibiotics-If patient improves will complete the antibiotic course on outpatient basis
If patient does not respond-would consider IUD c/s
Continue to monitor vitals
Optimize pain management
Keep appt for now on outpatient basis
Full code
DVT ppx-SCDs
Full liquid diet
Consultation
-
Date/Time Consultation Requested: 07/21/2025
Date/Time Consultation Performed: 07/21/2025
Requesting Provider: Dio Carmen
Performing Provider: Alexandria Manuel
Reason for Consultation: Pelvic pain
--- NOTE | 2025-07-21 15:20 | CM ---
CM following for discharge planning needs. Shruti lives with her and child in a bilevel home with 7 entry steps; 6 stairs to the bedroom/bathroom. Shruti is independent in ambulation and adls, homemaking, etc. Works as an RN.
Plan: Discharge to home when medically cleared. No anticipated needs identified at this time.
[2025-07-21 16:00] VITALS: BP 127/83
[2025-07-21] MEDS: STERILE WATER FOR INJECTION 20 ML IV (16:24)
[2025-07-21] MEDS: ROCEPHIN 2000 MG IV (16:24)
[2025-07-21] MEDS: VIBRAMYCIN 260 MG IV (17:09)
[2025-07-21] MEDS: ATARAX 10 MG PO (22:50)
[2025-07-21 23:00] VITALS: BP 122/74
[2025-07-22] MEDS: DILAUDID 1 MG IV ×2 (00:39→11:09)
[2025-07-22] MEDS: NSS 1000 IV ×2 (00:50→05:47)
[2025-07-22] MEDS: FLAGYL 500 MG 100 IV ×3 (04:06→20:43)
[2025-07-22] MEDS: VIBRAMYCIN 260 MG IV ×2 (05:48→17:46)
[2025-07-22 07:45] LABS: Hematocrit 31.5 % (37.0-47.0); Hemoglobin 10.4 g/dL (12.0-16.0); Mean Corp Hgb Conc. 33.0 g/dL (33.0-37.0); Mean Corpuscular Volume 85.6 fL (81.0-99.0); Platelet Count 190 10^3/uL (130-400); Red Cell Dist. Width 14.1 % (11.5-14.5)
[2025-07-22 08:09] LABS: ALT (SGPT) 18 U/L (0-35); AST (SGOT) 16 U/L (14-36); Albumin 3.2 g/dl (3.5-5.0); Alkaline Phosphatase 57 U/L (38-126); Blood Urea Nitrogen 7 mg/dl (7-17); Calcium 8.3 mg/dl (8.4-10.2); Carbon Dioxide 25 mmol/L (22-30); Chloride 108 mmol/L (98-107); Estimated Creatinine Clearance > 125 ml/min; Glucose 80 mg/dl (70-99); Potassium 3.9 mmol/L (3.5-5.1); Sodium 138 mmol/L (135-145); Total Protein 5.9 g/dl (6.3-8.2); eGFR > 60.00
[2025-07-22 08:43] VITALS: BP 136/89
[2025-07-22] MEDS: TORADOL 10 MG IV ×2 (08:47→20:43)
[2025-07-22] MEDS: PROTONIX IV 40 MG IV (08:47)
[2025-07-22] MEDS: NSS (PRESERVATIVE FREE) 10 ML IV (08:47)
[2025-07-22] MEDS: ZOLOFT 100 MG PO (08:48)
--- NOTE | 2025-07-22 09:30 | W.PN.HOSP.TC ---
Today's Communication/Plan
-
IV Abx
Pain control
Ok for diet
f/w SILK WEAVER recommendations
Assessment / Plan
Assessment / Plan
Physical Exam
General: Well Developed, Well Nourished and No Apparent Distress
HEENT: NormoCephalic, Moist mucous membranes and Atraumatic
Respiratory: Clear
Cardiac: S1/S2 and Regular Rhythm; No Murmur or Rub
GI: Soft, Non Distended, Normal Bowel Sounds and Tender (lower abdomen center tenderness s);
Rectal: Deferred by Provider
Musculoskeletal: No Clubbing, No Cyanosis and No Edema
Skin: No Rash
Neuro: Nonfocal/grossly intact
Psych: calm
A/P:
# Acute lower abdominal pain
Per GI: no significant GI symptoms, no diarrhea, clinically doubt colitis, more consistent with SILK WEAVER etiology, appreciate SILK WEAVER eval, will treat empirically for PID
Started on Doxy/ Flagyl/Rocephin. Tolerating antibiotics well.
No significant pain at times, less tender. No fevers.
Appreciate GI & Ceramic Coater help
# Viral URI
- COVID, influenza negative
# Acute blood loss anemia with combination of delusional anemia. No clinical evidence of rectal bleeding. Will continue to monitor.
GI prophylaxis.
# Abnormal uterine bleeding
# History of IUD placement in March
- Pelvic ultrasound shows small amount of pelvic free fluid, may be physiologic, IUD in proper position
- Outpatient follow-up with gynecology
History of nephrolithiasis
Obesity
- On GLP-1 agonist
Full code
DVT prophylaxis�SCDs
Clears
Total time spent to see the patient, examined the patient, review data and lab result, discuss treatment plan with patient, nursing staff, GI around 55 minutes
Anticipated Discharge: > 48 hours
Subjective/Interval History
-
Date of Service: July 22, 2025
Less pain
Tolerating diet well
Objective Data
-
Labs:
Laboratory Results
07/22/25
07:08
WBC 7.3
Hgb 10.4 L
Hct 31.5 L
Plt Count 190
Sodium 138
Potassium 3.9
Chloride 108 H
Carbon Dioxide 25
BUN 7
Creatinine 0.8
Glucose 80
Calcium 8.3 L
Total Bilirubin 0.6
AST 16
ALT 18
Alkaline Phosphatase 57
Vital Signs:
Vital Signs
Temp Pulse Resp BP Pulse Ox
98.1 F 84 20 136/89 97
07/22/25 08:43 07/22/25 08:43 07/22/25 08:43 07/22/25 08:43 07/22/25 08:43
I&O
07/21/25 07/22/25 07/23/25
06:59 06:59 05:59
Intake Total 480 / 480 720 / 720 480 / 480
Balance 480 / 480 720 / 720 480 / 480
--- NOTE | 2025-07-22 10:05 | W.PN.GI.CBS2 ---
Today's Communication / Plan
-
Please see assessment and plan for details.
Assessment / Plan
-
1. Suprapubic pain: With really no other significant GI symptoms, no diarrhea, clinically doubt colitis, more consistent with CREDENTIALING ANALYST etiology, appreciate CREDENTIALING ANALYST eval, will treat empirically for PID. Will hold on further GI workup for now.
We will sign off for now, please go back with any further questions.
Subjective
Subjective
Date of Service: July 22, 2025
Patient overall feeling better, still with pain though less frequent and less severe, no further vomiting. Still no diarrhea.
Objective
Data Reviewed
Laboratory Data:
Laboratory Results
07/22/25 07:08
07/22/25 07:08
Laboratory Results
Total Bilirubin 0.6 mg/dl (0.2-1.3) 07/22/25 07:08
AST 16 U/L (14-36) 07/22/25 07:08
ALT 18 U/L (0-35) 07/22/25 07:08
Alkaline Phosphatase 57 U/L (38-126) 07/22/25 07:08
Lipase 88 U/L (23-300) 07/20/25 08:42
Vital Signs and I&O:
Vital Signs
Temp Pulse Resp BP Pulse Ox
98.1 F 84 20 136/89 97
07/22/25 08:43 07/22/25 08:43 07/22/25 08:43 07/22/25 08:43 07/22/25 08:43
I&O
07/21/25 07/22/25 07/23/25
06:59 06:59 05:59
Intake Total 480 / 480 720 / 720 480 / 480
Balance 480 / 480 720 / 720 480 / 480
Physical Exam
Physical Exam
General: NAD
Abdomen: normal bowel sounds, soft, minimal uterine tenderness, no masses or bruits, no ascites
[2025-07-22] MEDS: ZOFRAN 4 MG IV (11:01)
[2025-07-22] MEDS: VISBIOME 1 CAP PO (13:53)
[2025-07-22 15:00] VITALS: BP 151/86
--- NOTE | 2025-07-22 15:03 | W.PN.OBG.DWH ---
Today's Communication / Plan
-
Continue current regimen of abx.
recheck labs in am.
GC/CT PCR and UA reflex to C&S
Hoping for dc tomorrow if improved.
Assessment/Plan
-
1. Pelvic pain, possible PID as working dx. GI did not feel she has clinical colitis.
-Pt low risk for GC/CT infection given monogamous relationship.
-Vaginitis results pending. [facility] vaginitis swab does not include GC/CT. Will add GC/CT PCR from urine. Pt declined repeat exam collecting from cervix due to low concern for risk. She has already been given Abx to cover these pathogens. Will
order more for completeness of workup. Also check UA, reflex to C&S.
-Continue on Rocephin, doxy, Flagyl for broad spectrum coverage. WBC improving. Clinically improving. Hope to have enough improvement for dc tomorrow.
2. IUD in place.
3. Irregular/AUB- could be having bleeding from IUD presence as well as if there is infection/endometritis. Since IUD appears to be in position, it does not need to be removed unless patient desires, or if not clinically improving.
Plan discussed with Shruti who agrees.
Subjective Data
-
Reviewed chart and rec'd signout from Dr. Manuel this am.
Shruti is feeling a little better today.
Reports had been getting sharp shooting lower pelvic pain. That seems to be improving as well.
Denies vaginal discharge, burning, dysuria.
Irregular bleeding, more noticeable this week.
No fever, chills, body aches, diarrhea or vomiting.
Objective Data
-
Laboratory Results
07/22/25 07:08
07/22/25 07:08
Vital Signs
Temp Pulse Resp BP Pulse Ox
98.1 F 84 20 136/89 97
07/22/25 08:43 07/22/25 08:43 07/22/25 08:43 07/22/25 08:43 07/22/25 08:43
VSS afeb
General - appears comfortable in NAD
cor regular rate
pulm: clear
abd: soft NDNT + tenderness midline lower pelvis. No G/R/R
ext: no calf pain
Vaginitis swab pending.
[2025-07-22] MEDS: ROCEPHIN 2000 MG IV (17:45)
[2025-07-22] MEDS: STERILE WATER FOR INJECTION 20 ML IV (17:46)
[2025-07-22 19:47] LABS: Urine Character Clear (Clear)
[2025-07-22 20:10] LABS: Urine Red Blood Cell 0-2 /HPF (0-2); Urine White Cell 0-2 /HPF (0-5)
[2025-07-23] MEDS: FLAGYL 500 MG 100 IV (04:32)
[2025-07-23] MEDS: VIBRAMYCIN 260 MG IV (06:19)
[2025-07-23 07:00] VITALS: BP 150/88
[2025-07-23 07:40] LABS: Hematocrit 34.0 % (37.0-47.0); Hemoglobin 11.4 g/dL (12.0-16.0); Mean Corp Hgb Conc. 33.5 g/dL (33.0-37.0); Mean Corpuscular Volume 83.3 fL (81.0-99.0); Nucleated Red Blood Cells % 0 %; Platelet Count 222 10^3/uL (130-400); Red Cell Dist. Width 13.6 % (11.5-14.5)
[2025-07-23 07:53] LABS: Blood Urea Nitrogen 7 mg/dl (7-17); Calcium 8.8 mg/dl (8.4-10.2); Carbon Dioxide 27 mmol/L (22-30); Chloride 104 mmol/L (98-107); Estimated Creatinine Clearance > 125 ml/min; Glucose 84 mg/dl (70-99); Potassium 3.7 mmol/L (3.5-5.1); Sodium 139 mmol/L (135-145); eGFR > 60.00
[2025-07-23] MEDS: PROTONIX IV 40 MG IV (08:52)
[2025-07-23] MEDS: VISBIOME 1 CAP PO (08:53)
[2025-07-23] MEDS: ZOLOFT 100 MG PO (08:53)
[2025-07-23] MEDS: ZOFRAN 4 MG IV (08:53)
[2025-07-23] MEDS: NSS (PRESERVATIVE FREE) 10 ML IV (08:53)
--- NOTE | 2025-07-23 09:26 | W.PN.HOSP.TC ---
Today's Communication/Plan
-
dc
Assessment / Plan
Assessment / Plan
Physical Exam
General: Well Developed, Well Nourished and No Apparent Distress
HEENT: NormoCephalic, Moist mucous membranes and Atraumatic
Respiratory: Clear
Cardiac: S1/S2 and Regular Rhythm; No Murmur or Rub
GI: Soft, Non Distended, Normal Bowel Sounds and not Tender (no lower abdomen center tenderness);
Musculoskeletal: No Clubbing, No Cyanosis and No Edema
Skin: No Rash
Neuro: Nonfocal/grossly intact
Psych: calm
A/P:
# Acute lower abdominal pain
Per GI: no significant GI symptoms, no diarrhea, clinically doubt colitis, more consistent with [employer]MINISTR[employer] etiology, appreciate [employer] ADMINISTRATOR eval, will treat empirically for PID
Started on Doxy/ Flagyl/Rocephin. Tolerating antibiotics well. very good clinical improvement. Followed by [employer] ADMINISTRATOR. No vaginal bleeding or discharge
Negative GC/CT infection
Tolerating diet
No fevers
WBC normal
Appreciate GI [employer] Seam [employer] help. Discussed with [employer] ADMINISTRATOR. Will start the patient on doxycycline and Flagyl to finish 14 days course. She is done with the Rocephin with no reaction.
# Viral URI
Resolved
- COVID, influenza negative
# History of nausea. Recent wt loss with GPL-1 therapy
Discussed with patient, counseled that Flagyl and / Or Doxy start might cause exacerbation of GI symptoms. Given prescription for Zofran
# Acute blood loss anemia with combination of delusional anemia. No clinical evidence of rectal bleeding. Will continue to monitor.
GI prophylaxis.
# Abnormal uterine bleeding
# History of IUD placement in March
- Pelvic ultrasound shows small amount of pelvic free fluid, may be physiologic, IUD in proper position
- Outpatient follow-up with gynecology
History of nephrolithiasis
Obesity
- On GLP-1 agonist
Total discharge time spent to see the patient, examined the patient, review data and lab result, discuss discharge plan with patient, [employer] ADMINISTRATOR doctor, nursing staff around 65 minutes
Anticipated Discharge: Today
Subjective/Interval History
-
Date of Service: July 23, 2025
She is feeling better, requesting discharge
No abdominal pain
Tolerating diet
No fever
Objective Data
-
Labs:
Laboratory Results
07/23/25
06:38
WBC 7.8
Hgb 11.4 L
Hct 34.0 L
Plt Count 222
Sodium 139
Potassium 3.7
Chloride 104
Carbon Dioxide 27
BUN 7
Creatinine 0.7
Glucose 84
Calcium 8.8
Vital Signs:
Vital Signs
Temp Pulse Resp BP Pulse Ox
99.2 F 78 18 150/88 97
07/23/25 07:00 07/23/25 07:00 07/23/25 07:00 07/23/25 07:00 07/23/25 07:00
I&O
07/22/25 07/23/25 07/24/25
06:59 05:59 06:59
Intake Total 720 / 720 3080 / 3080
Balance 720 / 720 3080 / 3080
[2025-07-23] MEDS: ROCEPHIN 1000 MG IV (10:09)
[2025-07-23] MEDS: STERILE WATER FOR INJECTION 10 ML IV (10:09)
--- NOTE | 2025-07-23 10:26 | CM ---
Patient will d/c home today
No CM needs at this time
[2025-07-23 11:00] VITALS: BP 138/81
--- NOTE | 2025-07-23 13:01 | W.DCSUMMARY ---
Discharge Summary
Discharge Data
Date of Admission: 07/20/25
Date of Discharge: 07/23/25
-
Pending Results: No
Hospital Course
35 years old female presented for evaluation of lower abdominal pain/pelvic pain. Patient reported vaginal spotting related to her IUD. She had leukocytosis. Patient was started on empiric antibiotics. She was admitted to the hospital for
further management. CAT scan of the abdomen pelvis showed colonic wall thickening consistent with colitis. Patient was evaluated by leaded glass installer. Patient symptoms felt to be more related to H[employer] source more than GI because of lack of signs
of sepsis or clinical colitis. Her nausea could be related to GP L1 use. HAT SIZER was consulted. Pelvic examination was consistent with possible pelvic inflammatory disease. Gonorrhea and Chlamydia test was negative. Patient was started on empiric
treatment with Rocephin, Flagyl and doxycycline. Patient had significant clinical improvement. She did not have further abdominal pain. She tolerated diet well. White count became normal with no fevers. She was given potential side effects of
antibiotics. She remained hemodynamically stable and she was discharged home in a stable condition to finish course of antibiotics.
Discharge Plan
-
Patient Disposition: Home (Routine Discharge)
Discharge Diagnosis/Procedures: Pelvic pain, suspected pelvic inflammatory disease. You were evaluated by HAT [employer] specialist.
CAT scan showed evidence of colitis but clinically you did not have colitis. You were evaluated by GI doctor.
You received intravenous antibiotics.
You will be discharged on the following antibiotics:
- Doxycycline, potential side effect include GI problem/photosensitivity(avoid direct sun exposure while taking it)
- Metronidazole, potential side effects include GI problems. Use Zofran as needed for nausea.
Diet: As tolerated
Referrals:
RASHAD MILLER MD [Family Provider, General] - in one to two weeks
Prescriptions:
New
ondansetron HCl 4 mg tablet
4 mg PO Q8H PRN (Reason: nausea and vomiting) Qty: 20 0RF
doxycycline hyclate 100 mg tablet
100 mg PO BID Qty: 24 0RF
metronidazole 500 mg tablet
500 mg PO BID Qty: 24 0RF
Continued
sertraline 100 mg Tablet
100 mg PO DAILY
minoxidil 2.5 mg Tablet
1.25 mg PO DAILY
hydroxyzine HCl 10 mg Tablet
10 mg PO TIDPRN PRN (Reason: anxiety)
PNV no.95-ferrous fumarate-FA [] 28 mg iron- 800 mcg Tablet
1 tab PO DAILY
Discharge Orders:
Discharge Patient (As Directed); Ordered 07/23/25
Ordered By: Dio Carmen
Discharge Date and Time
Discharge Date/Time: 07/23/25 11:21
Print Language: GIBRALTARIAN
[2025-07-25 17:33] LABS: Bacterial Vaginosis by TMA Negative; Candida glabrata by TMA Negative; Candida species by TMA Negative; Trichomonas vaginalis by TMA Negative
== END 2025-07-23 11:21 | disposition home or self-care (01) | DRG 758 ==
LOC: 3 WEST ACU 11:38
PROVIDERS: Obstetrics & Gynecology; ADMITTING PHYSICIAN Hospitalist; ATTENDING PHYSICIAN Internal Medicine; CONSULT PHYSICIAN Internal Medicine; CONSULT PHYSICIAN Student in an Organized Health Care Education/Training Program; EMERGENCY PHYSICIAN Emergency Medicine; FAMILY PHYSICIAN Family Medicine
DX: N73.9 Female pelvic inflammatory disease, unspecified (principal); D62 Acute posthemorrhagic anemia; Z11.52 Encounter for screening for COVID-19; E66.9 Obesity, unspecified; Z68.32 Body mass index [BMI] 32.0-32.9, adult
CPT/HCPCS: 74177; 76830; 76856; 80048; 80053; 81003; 81015; 81513; 83690; 84703; 85025; 85027; 87481; 87491; 87502; 87591; 87661; 87811; 93005; 96361; 96374; 96375; 96376; 99285; Q9967